=== PATIENT | female | born 1945 | race Caucasian/White ===

== ENCOUNTER 2020-05-28 07:59 | Outpatient (CLI) | payer MEDICARE, OTHER, SELFPAY ==
--- NOTE | ~2020-05-28 | DEXA_ITS ---
Bone Density Report Name: Radha Brooks Age: 75 Sex: Female Ethnicity: White Date of : 1945 Indication: osteopenia; height loss; Referring Provider: MARYAM DIALLO Study: Bone densitometry was performed. Exam Date: May 28, 2020 Accession number: [id number] Bone Density: Region BMD T-score Z-score Classification AP Spine (L1, L2) 0.831 -1.3 0.8 Osteopenia Femoral Neck (Left) 0.566 -2.6 -0.6 Osteoporosis Total Hip (Left) 0.721 -1.8 -0.1 Osteopenia Total Hip Bilateral Avg 0.722 -1.8 -0.1 Osteopenia Femoral Neck (Right) 0.567 -2.5 -0.6 Osteoporosis Total Hip (Right) 0.722 -1.8 -0.1 Osteopenia World Health Organization criteria for BMD impression classify patients as: Normal (T-score at or above -1.0), Osteopenia (T-score between -1.0 and -2.5), or Osteoporosis (T-score at or below -2.5). 10-year Fracture Risk: FRAX not reported because: Some T-score for Spine Total or Hip Total or Femoral Neck at or below -2.5 Previous Exams: Region Exam Age BMD T-score BMD Change BMD Change Date g/cm2 vs Baseline vs Previous AP Spine(L1, L2) 05/28/2020 75 0.831 -1.3 -0.083(-9.1%)# -0.011(-1.3%) 09/29/2017 72 0.842 -1.2 -0.072(-7.9%)# 0.000(0.0%) 08/25/2015 70 0.841 -1.3 -0.073(-8.0%)# -0.036(-4.1%)# 08/18/2012 67 0.877 -0.9 -0.037(-4.1%)# 0.007(0.8%)# 09/16/2006 61 0.870 -1.0 -0.044(-4.8%)* -0.015(-1.7%) 06/04/2004 59 0.885 -0.9 -0.029(-3.2%)* -0.029(-3.2%)* 06/11/2002 57 0.914 -0.6 Total Hip(Left) 05/28/2020 75 0.721 -1.8 -0.088(-10.8%) -0.042(-5.5%)* 09/29/2017 72 0.763 -1.5 -0.046(-5.6%)# -0.018(-2.3%) 08/25/2015 70 0.780 -1.3 -0.028(-3.5%)# -0.034(-4.2%)# 08/18/2012 67 0.814 -1.0 0.006(0.7%)# 0.033(4.2%)# 09/16/2006 61 0.782 -1.3 -0.027(-3.3%) -0.010(-1.3%) 06/04/2004 59 0.792 -1.2 -0.017(-2.1%) -0.017(-2.1%) 06/11/2002 57 0.808 -1.1 Total Hip(Right) 05/28/2020 75 0.722 -1.8 -0.077(-9.6%)# -0.024(-3.3%) 09/29/2017 72 0.746 -1.6 -0.053(-6.6%)# -0.015(-1.9%) 08/25/2015 70 0.761 -1.5 -0.038(-4.8%)# -0.014(-1.8%)# 08/18/2012 67 0.774 -1.4 -0.024(-3.0%)# -0.033(-4.1%)# 09/16/2006 61 0.808 -1.1 0.009(1.1%) 0.018(2.3%) 06/04/2004 59 0.790 -1.2 -0.009(-1.1%) -0.009(-1.1%) 06/11/2002 57 0.799 -1.2 *Denotes significance at 95% confidence level, LSC for AP Spine = 0.022 g/cm2, LSC for Total Hip = 0.027 g/cm2 Clinical Information Provided by Patient: Has u
--- NOTE | ~2020-05-28 | MM_ITS ---
EXAMINATION: MM screening jax BI w john HISTORY: Screening mammogram TECHNIQUE: Craniocaudal and mediolateral oblique 3-D tomosynthesis images were obtained and synthetic 2-D images were generated. CAD analysis was submitted and interpreted. COMPARISON: 09/29/2017, 09/27/2016, 08/23/2014 bilateral digital screening mammogram examinations BREAST PARENCHYMAL COMPOSITION: There are scattered areas of fibroglandular density. FINDINGS: There is a biopsy marker on the right. Occasional bilateral benign calcifications. There is no evidence of suspicious mass, calcification, or architectural distortion to suggest malignancy in either breast. There has been no suspicious interval change. IMPRESSION: 1. No mammographic evidence of malignancy. 2. Recommend routine screening mammography in one year. BI-RADS Category 2: Benign finding(s). Reviewed, dictated and finalized at location A.
== END 2020-05-28 08:00 | disposition home or self-care (01) ==
LOC: ANHIMG 08:01
PROVIDERS: PCP Family Medicine; Visit Provider Family Medicine
DX: Z12.31 Encounter for screening mammogram for malignant neoplasm of breast (principal); Z78.0 Asymptomatic menopausal state; M85.89 Other specified disorders of bone density and structure, multiple sites; M81.0 Age-related osteoporosis without current pathological fracture
CPT/HCPCS: 77063; 77067; 77080

== ENCOUNTER 2021-02-26 08:18 | Outpatient (CLI) | payer MEDICARE, OTHER, SELFPAY ==
--- NOTE | ~2021-02-26 | US_ITS ---
EXAMINATION: US retroperitoneal duplex ltd EXAM DATE: 02/26/2021 09:38 INDICATION: Renal artery aneurysm. TECHNIQUE: Multiple grayscale and Doppler images of the kidneys and renal arteries were obtained. Co rrelation is made to CT without contrast 03/23/2019 demonstrating 9 mm renal artery aneurysm. FINDINGS: Right kidney measures 8.0 x 3.8 cm. The left kidney measures 7.9 x 4.5 cm, and has a 6-7 cm exophytic cyst off the lower pole. No hydronephrosis. The aorta peak systolic velocity is 78 cm/s. Renal arteries interrogated in several segments from origin to hilum. RIGHT RENAL ARTERY Proximal segment (origin): 123 cm/s. Middle segment: 176 cm/s. Distal segment (hilum): 94 cm/s. LEFT RENAL ARTERY Proximal segment (origin): 115 cm/s. Middle segment: 120 cm/s. Distal segment (hilum): 122 cm/s. IMPRESSION: 1. Renal artery Doppler velocities within normal limits. 2. Cannot identify right renal artery aneurysm seen on CT. Reviewed, dictated and finalized at location G.
== END 2021-02-26 08:19 | disposition home or self-care (01) ==
PROVIDERS: PCP Family Medicine; Visit Provider Family Medicine
DX: I72.2 Aneurysm of renal artery (principal)
CPT/HCPCS: 93976

== ENCOUNTER 2021-12-29 14:31 | Outpatient (CLI) | payer MEDICARE, OTHER, SELFPAY ==
--- NOTE | ~2021-12-29 | MM_ITS ---
EXAMINATION: MM screening jax BI w john HISTORY: Screening mammogram TECHNIQUE: Craniocaudal and mediolateral oblique 3-D tomosynthesis images were obtained and synthetic 2-D images were generated. CAD analysis was submitted and interpreted. COMPARISON: 05/28/2020, 09/29/2017, 09/27/2016 bilateral screening mammogram examinations BREAST PARENCHYMAL COMPOSITION: There are scattered areas of fibroglandular density. FINDINGS: Biopsy marker on the right; history of prior benign right breast biopsy. Occasional bilater al benign calcifications. There is no evidence of suspicious mass, calcification, or architectural di stortion to suggest malignancy in either breast. There has been no suspicious interval change. IMPRESSION: 1. No mammographic evidence of malignancy. 2. Recommend routine screening mammography in one year. BI-RADS Category 2: Benign finding(s). Reviewed, dictated and finalized at location A.
== END 2021-12-29 14:32 | disposition home or self-care (01) ==
PROVIDERS: PCP Family Medicine; Visit Provider Physician Assistant Medical
DX: Z12.31 Encounter for screening mammogram for malignant neoplasm of breast (principal)
CPT/HCPCS: 77063; 77067

== ENCOUNTER 2022-01-05 12:38 | Outpatient (CLI) | payer MEDICARE, OTHER, SELFPAY ==
--- NOTE | ~2022-01-05 | XR_ITS ---
IMPRESSION: 1. Tricompartmental osteoarthritis. EXAMINATION: XR knee LT 3V DATE: 01/05/2022 12:58 INDICATION: Left knee pain TECHNIQUE: Three views of the left knee were obtained. COMPARISON: None. FINDINGS: Alignment is normal. No fracture or osteochondral lesion. There is moderate tricompartmenta l osteoarthritis. No joint effusion/synovitis. Soft tissues are unremarkable. IMPRESSION: 1. Tricompartmental osteoarthritis. Reviewed, dictated and finalized at location F.
--- NOTE | ~2022-01-05 | CT_ITS ---
EXAMINATION: CT abdomen wo con DATE: 01/05/2022 13:05 INDICATION: Renal artery surveillance TECHNIQUE: Computed tomography (CT) of the abdomen was performed without intravenous contrast. Automa juan exposure control and iterative reconstruction technique were employed. Exam dose: 121.95 mGy-cm total exam DLP. COMPARISON: 03/23/[address] abdomen pelvis FINDINGS: The lung bases are clear of infiltrate or consolidation. Normal heart size. No pericardial or pleural effusion. The liver, gallbladder, bile ducts, spleen, pancreas, pancreatic duct and adrenal glands are unremark able. Prominently calcified up to 9 mm right renal artery aneurysm, stable since 03/23/2019. 6 cm lower pole left renal cyst. No renal calculus or hydroureteronephrosis. There is atherosclerotic calcification but normal caliber of the abdominal aorta. There is probably c alcification at the origins of the renal arteries and celiac and superior mesenteric arteries. No int raperitoneal or retroperitoneal mass lesion or adenopathy or ascites. Diverticulosis of descending colon. No bowel obstruction or intraperitoneal free air is detected. Small fat-containing umbilical hernia. Scoliosis and degenerative disc disease of the lumbar spine. IMPRESSION: Stable approximately 9 mm right renal calcified aneurysm, not significantly changed sinc e 03/23/2019 6 cm lower pole left renal cyst Diverticulosis of descending colon Reviewed, dictated and finalized at Location A. Reviewed, dictated and finalized at location A. IMPRESSION: Stable approximately 9 mm right renal calcified aneurysm, not sign ificantly changed since 03/23/2019 6 cm lower pole left renal cyst Diverticulosis of descending colon
== END 2022-01-05 12:39 | disposition home or self-care (01) ==
PROVIDERS: PCP Family Medicine; Visit Provider Family Medicine
DX: I72.2 Aneurysm of renal artery (principal); N28.1 Cyst of kidney, acquired; M41.9 Scoliosis, unspecified; K57.30 Diverticulosis of large intestine without perforation or abscess without bleeding; M47.816 Spondylosis without myelopathy or radiculopathy, lumbar region; M17.12 Unilateral primary osteoarthritis, left knee
CPT/HCPCS: 73562; 74150

== ENCOUNTER 2022-03-05 15:44 | Emergency (ER) | payer MEDICARE, OTHER, SELFPAY ==
--- NOTE | ~2022-03-05 | XR_ITS ---
EXAMINATION: XR abdomen/kub 1V DATE: 03/05/2022 16:10 INDICATION: Low abdominal pain. TECHNIQUE: A supine view of the abdomen was obtained. COMPARISON: CT abdomen 01/05/2022, CT abdomen and pelvis 03/23/2019 FINDINGS: There are no dilated loops of bowel. There is no visible urolithiasis. There is an 8 mm rim -calcified saccular aneurysm of right renal artery. There are vascular calcifications and soft tissue calcifications in the pelvis. IMPRESSION: 1. Normal bowel gas pattern. 2. No urolithiasis. Reviewed, dictated and finalized at location A.
[2022-03-05 15:52] VITALS: BP 110/61; PULSE 106; RESP 16; TEMP 36.4; O2SAT 100
--- NOTE | 2022-03-05 16:32 | ED.ABDPAIN ---
HPI - Abdominal Pain General Chief Complaint: Abdominal Pain Stated Complaint: diarrhea,fatigue,abdominal pain Time Seen by Provider: 03/05/22 16:32 Source: RN notes reviewed and old records reviewed Mode of arrival: ambulatory Limitations: no limitations History of Present Illness HPI narrative: 77 year old female who presents to [facility] care with complaints of upper and lower abdominal pain for the past 4 days. She states that she has been having a lot of belching and pain is intermittent. She reports that she has had some episodes of diarrhea and has history of IBS and diverticulosis and has taken some hyoscyamine and pepcid for her complaints. Patient denies any urinary burning or any frequency of urination or any back pain. Patient denies any fevers but states some chills at times. Patient did not call her PCP or continuity director office. MD elicited complaint: abdominal pain Pertinent past history: other (IBS and diverticulosis) Onset (ago): day(s) (4) Treatments prior to arrival: other (pepcid and hyoscamine) Related Data Home Medications Medication Instructions Recorded Confirmed hyoscyamine sulfate 0.125 mg tablet 0.125 mg PO QID PRN ibs 09/23/21 02/24/22 Allergies Allergy/AdvReac Type Severity Reaction Status Date / Time beef derived (bovine) Allergy Unknown stomach Verified 02/24/22 11:50 pain diclofenac Allergy Unknown abdominal Verified 02/24/22 11:50 pain No Known Allergies Allergy Verified 02/24/22 11:50 Review of Systems Review of Systems: CONSTITUTIONAL: Denies fever, reports chills at X's no sweats. EYES: Denies visual changes, redness, or discharge. ENT: Denies rhinorrhea, congestion, sore throat, or otalgia. CARDIOVASCULAR: Denies chest pain, palpitations, or edema. RESPIRATORY: Denies cough or dyspnea. GASTROINTESTINAL: Upper and lower abdominal pain, intermittent with no nausea, vomiting, some diarrhea. GENITOURINARY: Denies dysuria or hematuria. SKIN: Denies rash or itching. MUSCULOSKELETAL: Chronic back pain, joint pain, or myalgia. NEUROLOGIC: Denies headache, numbness, or weakness. PSYCHIATRIC: Denies anxiety or depression [facility] Past Medical History Medical History (Updated 03/06/22 @ 12:24 by Gay Velez NP) Aneurysm of right renal artery 2018 9mm calcified rim 2020 renal duplex normal Chronic insomnia Diverticulosis large intestine w/o perforation or abscess w/o bleeding Essential hypertension GERD without esophagitis Hypothyroid Mixed hyperlipidemia Sciatica Surgical History Surgical History (Updated 03/06/22 @ 12:25 by Gay Velez NP) History of bunionectomy History of carpal tunnel release right History of tonsillectomy Family History Family History Father Diabetes mellitus Family history of cardiovascular disease Other Family history of elevated blood lipids Hypertension Social History Social History (Updated 03/06/22 @ 12:26 by Gay Velez NP) Smoking end date: 09/12/86 Alcohol intake: never Substance use: never Living arrangements: with family Gender identity (if verbalized by the patient): Female Comments at time of signature agree with nursing documentation of past medical, surgical, social, family history. There is no relevant family history pertinent to presenting complaint. Exam Narrative: GENERAL: Well-appearing, well-nourished, and in no acute distress. HEAD: Normocephalic, atraumatic. EYES: PERRLA and EOMI. ENT: Nares clear, no rhinorrhea or epistaxis. Mucous membranes moist.TM's normal with good light reflex, throat pink with no lesions or exudates no tonsils present NECK: Supple.no lymphadenopathy CHEST: Clear to auscultation. No respiratory distress.SAO2 100% on room air HEART: Regular rate and rhythm. No murmur heard. Normal peripheral pulses. ABDOMEN: Soft, nontender to palpation, no McBurney point tenderness, nondistended patient repor
== END 2022-03-05 16:54 | disposition home or self-care (01) ==
PROVIDERS: Emergency Provider Registered Nurse; PCP Family Medicine
DX: N39.0 Urinary tract infection, site not specified (principal); I10 Essential (primary) hypertension; K21.9 Gastro-esophageal reflux disease without esophagitis; E03.9 Hypothyroidism, unspecified; E78.2 Mixed hyperlipidemia
CPT/HCPCS: 74018; 81003; 87086; 87088; 99213; G0463

== ENCOUNTER 2022-04-14 11:29 | Outpatient (CLI) | payer MEDICARE, OTHER, SELFPAY | END 2022-04-14 11:30 | disposition home or self-care (01) | LOC: ANHGOSHLAB 11:31 | PROVIDERS: PCP Family Medicine; Visit Provider Family Medicine | DX: E03.9 Hypothyroidism, unspecified (principal) | CPT/HCPCS: 36415; 84443 ==

== ENCOUNTER 2022-08-09 13:32 | Outpatient (CLI) | payer MEDICARE, OTHER, SELFPAY ==
[2022-08-09 20:07] LABS: Potassium 4.2 mmol/L (3.4-5.0)
[2022-08-09 20:13] LABS: Anion Gap 9 mmol/L (8-16); Blood Urea Nitrogen 28 mg/dL (7-17); Calcium 8.9 mg/dL (8.4-10.2); Carbon Dioxide 26 mmol/L (22-30); Chloride 108 mmol/L (98-107); Estimated Glomerular Filt Rate 54; Glucose 89 mg/dL (65-110); Sodium 143 mmol/L (137-145)
== END 2022-08-09 13:33 | disposition home or self-care (01) ==
LOC: ANHGOSHLAB 13:36
PROVIDERS: PCP Family Medicine; Visit Provider Family Medicine
DX: I10 Essential (primary) hypertension (principal)
CPT/HCPCS: 36415; 80048

== ENCOUNTER → 2022-08-13 11:58 | Outpatient (CLI) | payer MEDICARE, OTHER, SELFPAY ==
--- NOTE | ~2022-08-13 | DEXA_ITS ---
Bone Density Report Name: GABRIELA VILLAFUERTE Age: 77 Sex: Female Ethnicity: White Date of : 1945 Indication: postmenopausal; screening for osteoporosis; height loss; Referring Provider: MARYAM DIALLO Study: Bone densitometry was performed. Exam Date: August 13, 2022 Accession number: [id number] Bone Density: Region BMD T-score Z-score Classification AP Spine (L1-L4) 0.873 -1.6 0.8 Osteopenia Femoral Neck (Left) 0.574 -2.5 -0.4 Osteoporosis Total Hip (Left) 0.728 -1.8 0.1 Osteopenia Femoral Neck (Right) 0.563 -2.6 -0.5 Osteoporosis Total Hip (Right) 0.718 -1.8 0.0 Osteopenia Total Hip Mean 0.723 -1.8 0.1 Osteopenia World Health Organization criteria for BMD impression classify patients as: Normal (T-score at or above -1.0), Osteopenia (T-score between -1.0 and -2.5), or Osteoporosis (T-score at or below -2.5). 10-year Fracture Risk: FRAX not reported because: Some T-score for Spine Total or Hip Total or Femoral Neck at or below -2.5 Clinical Information Provided by Patient: Has used the following medications: Vitamin D Patient maximum height was 59.75 Menopause Age: 53 Drinks caffeinated beverages Onset of menses at age 14 Number of children 2 Impression: The patient has osteoporosis, based on the Right Femoral Neck T-score. Discussion: INCREASED RISK OF FRACTURE. BONE DENSITY IS UNDESIRABLY LOW AT ONE OR MORE SKELETAL SITES, CONSISTENT WITH POSTMENOPAUSAL OSTEOPOROSIS. This patient's lowest T-score meets the World Health Organization's (WHO) criteria for osteoporosis at one or more sites (T-score -2.5 or below). In untreated patients, the risk of osteoporotic fracture increases approximately two-fold for each 1.0 SD decrease in T-score. Low bone density is not the only risk factor for fracture; also consider factors such as patient's age, frailty or poor health, risk of falling, risk of injury, previous osteoporotic fracture, family history of osteoporosis, cigarette smoking, low body weight, etc. Not everyone with low bone mineral density has osteoporosis; osteomalacia and other metabolic bone disorders should also be considered. Patients who have osteoporosis should be evaluated for specific diseases and conditions (secondary causes) that may cause or contribute to bone loss. The [place] [employer] Endocrinologists (AACE) and National Osteoporosis Foundation (NOF) recommend pharmacologic intervention for all postmenopausal women whose T-score is in this range. The patient should follow a healthful lifestyle (good nutrition with adequate calcium and vitamin D, and appropriate weight-bearing exercise). Follow-Up: Consider a repeat BMD and Vertebral Fracture Assessment (VFA) exam in 2 years or sooner if medically necessary, to reassess this patient's status. Reported by
== END ==
PROVIDERS: PCP Family Medicine; Visit Provider Family Medicine
DX: Z78.0 Asymptomatic menopausal state (principal); M81.0 Age-related osteoporosis without current pathological fracture
CPT/HCPCS: 77080

== ENCOUNTER 2022-10-05 13:02 | Outpatient (CLI) | payer MEDICARE, SELFPAY ==
[2022-10-06 09:36] LABS: Kit Draw Collected
== END 2022-10-05 13:03 | disposition home or self-care (01) ==
LOC: ANHGOSHLAB 13:04
PROVIDERS: PCP Family Medicine; Visit Provider Family Medicine
DX: G62.9 Polyneuropathy, unspecified (principal); I10 Essential (primary) hypertension; M79.89 Other specified soft tissue disorders
CPT/HCPCS: 36415

== ENCOUNTER 2022-10-25 00:06 | Day surgery (SDC) | payer MEDICARE, OTHER, SELFPAY ==
[2022-10-22 09:19] VITALS: BMI 23.6
--- NOTE | 2022-10-22 09:26 | PC.NURSE ---
Report to the Outpatient Waiting Room, entrance under the green pavilion located off [facility], at time __1100 on date __10/25/21 . Planned Procedure Time: ___1 PM . Time changes happen often and if your time is changed the preop area will call you the afternoon before. - You and your visitor will be asked to self-screen and do not enter if you have any COVID symptoms. - Only one visitor is requested with a max of two and NO children visitors are allowed at this time. - The patient visitor may be requested to leave or wait in car when not with patient due to distancing restrictions. - A mask is optional within the hospital at this time. Patients may have clear liquids (water, carbonated beverages, clear teas, apple juice) until 3 hours prior to surgery (1000 AM) with a maximum of 20 ounces. - No food from midnight until time of surgery - Infants may have breast milk until 4 hours before surgery, infant formula 6 hours prior to surgery. - Children will be allowed to drink immediately following surgery. If applicable, please bring a bottle or sippy cup to assist with drinking. Juice, water, soda, and popsicles are readily available. For infants on formula, please bring formula the day of surgery. Pacifiers are allowed. Take the following medications with a SIP of water the morning of surgery: _GABAPENTIN, LEVOTHYROXINE, NEBIVOLOL, & TYLENOL, EYE DROPS IF NEEDED__ DO NOT STOP ANY OF YOUR OTHER PRESCRIPTION MEDICATIONS PRIOR TO SURGERY ?EXCEPT THE FOLLOWING Medications to discontinue _MELOXICAM PER DR. LOERA'S INSTRUCTIONS_ Medications to discontinue per ANESTHESIA -_VITAMINS/SUPPLEMENTS OF TODAY Date to take last dose____10/22/22 Please no make-up, nail croatian, hairspray, perfume, deodorant, or body powder the day of surgery. No jewelry (including any body piercings) or valuables the day of surgery, leave them at home. Please take a shower or bath the night before, or the morning of, surgery with an antibacterial soap. Wear comfortable, loose fitting clothing. Children are encouraged to wear pajamas. - Jewelry must be removed prior to entering the operating room. Rings and piercings that are not removed may be cut off. - The hospital will not accept responsibility for valuables. - Please leave all valuables, including medications, at home the day of surgery. If you are going home after surgery, a licensed airport driver must drive you home. - NO public transportation without another adult if you receive anesthesia. - We recommend that an adult stay with you for 24 hours following discharge. - We also recommend that you do not drive, make important decision, drink alcoholic beverages, or take any drugs that were not prescribed by your health care provider for at least 24 hours after your discharge time. For Pediatric surgeries, we recommend two adults accompany the child home. Follow any additional instructions given to you from your surgeon. If you or anyone in your household have experienced Covid symptoms in the past week, please notify your surgeon or the nurse liaison at the phone number below for possible testing. Telephone instructions given to ___PATIENT and asked if any additional questions and then verbalized understanding. Patient advised to call surgeon office or pre surgery nurse liaison [phone] if any additional questions.
--- NOTE | 2022-10-25 09:21 | WPDANESEPPF ---
Anes - Initial Pre Proc Eval Procedure: Operation Date: 10/25/22 10:00 Proposed Procedures p Left Third Trigger Finger Release - Amos Ghosh MD Date/Time: 10/25/22 09:21 Surgeon: Amos Ghosh MD Pre Op Diagnosis: left third trigger finger Patient Data Age: 77 Gender: F Height: 1.49 m Weight: 53.8 kg Allergies Allergy/AdvReac Type Severity Reaction Status Date / Time beef derived (bovine) Allergy Unknown stomach Verified 10/25/22 09:06 pain diclofenac Allergy Unknown abdominal Verified 10/25/22 09:06 pain Home Medications Medication Instructions Recorded Confirmed Type acetaminophen 500 mg tablet 500 mg PO Q6H PRN Pain 07/15/22 10/22/22 History (Tylenol Extra Strength) atorvastatin 10 mg tablet 10 mg PO DAILY #90 tabs 07/15/22 10/22/22 Rx hyoscyamine sulfate 0.125 mg tablet 0.125 mg PO QID PRN dyspepsia #30 07/15/22 10/22/22 Rx tabs levothyroxine 50 mcg tablet 50 mcg PO DAILY #90 tabs 07/15/22 10/25/22 Rx artificial tears(hypromellose) 0.3 1 drp EACH EYE QID PRN Dry Eyes 08/17/22 10/22/22 History % eye gel (Systane Gel) meloxicam 7.5 mg tablet 7.5 mg PO DAILY PRN Pain 09/29/22 10/22/22 History gabapentin 300 mg capsule 300 mg PO .COMPLEX #90 caps 10/19/22 10/22/22 Rx metoprolol succinate 50 mg capsule 50 mg PO DAILY #90 ea 10/19/22 10/22/22 Rx sprinkle, ext. release 24 hr cholecalciferol (vitamin D3) 50 50 mcg PO DAILY 10/22/22 10/22/22 History mcg (2,000 unit) capsule cyanocobalamin (vitamin B-12) 500 500 mcg PO DAILY 10/22/22 10/22/22 History mcg tablet magnesium citrate 100 mg capsule 100 mg PO DAILY 10/22/22 10/22/22 History nebivolol 2.5 mg tablet 2.5 mg QAM 10/22/22 10/22/22 History zolpidem 10 mg tablet 10 mg PO QHS 10/22/22 10/22/22 History Patient hx anesthesia problems: none Family hx anesthesia problems: none Results Review: All pre-operative results and documents have been reviewed as part of the pre-operative evaluation. [facility] Past Medical History Medical History Aneurysm of right renal artery 4.26.22 ct renal artery for renal artery aneurysm- 9mm calcified rim right renal artery aneurysm stable 2019: Arthritis of carpometacarpal (CMC) joint of right thumb Chronic insomnia Diverticulosis large intestine w/o perforation or abscess w/o bleeding Essential hypertension GERD without esophagitis Hypothyroid Mixed hyperlipidemia Osteoarthritis of left knee Sciatica Trigger finger, left middle finger Surgical History Surgical History History of bunionectomy History of carpal tunnel release right History of cataract extraction History of tonsillectomy Family History Family History Father Diabetes mellitus Family history of cardiovascular disease Other Family history of elevated blood lipids Hypertension Social History Social History Smoking packs per day: 1 Smoking cigarettes per day: 20.0 Years smoked: 15 Smoking pack-years: 15.00 Smoking status: Former smoker Tobacco type: cigarettes Second hand tobacco smoke exposure: No Smoking end date: 09/12/80 Alcohol intake: never Substance use: never Substance use type: does not use Lack of Transportation: No Lack of Food: Never True Current Housing: I Have Housing Concerned About Future Housing: No Difficulty Paying Gas/Electric Bills: No Difficulty Paying for Meds: No Currently Unemployed: No Education: High School Diploma/GED Difficulty w/ Childcare or Family Care: No Living arrangements: with family Occupation/Education: retired Gender identity (if verbalized by the patient): Female Spiritual care concerns: No Anes - Eval Final PreProcedure Day of Procedure 10/25/22 09:21 Patient weight: normal Hear
[2022-10-25] MEDS: ceFAZolin 2 GM/D5W 50 ML 2 GM/50 ML BAG IVPB (09:30)
--- NOTE | 2022-10-25 09:31 | WPDHPUPDATE1 ---
History and Physical Update Update Date/Time: 10/25/22 09:31 History and Physical has been reviewed, including an updated exam of the patient. There are NO changes in the patient's condition. Risks, benefits, and alternatives have been discussed and questions answered. Patient agrees to proceed with procedure.
[2022-10-25] MEDS: BUPivacaine HCL 0.25% PF 30 ML VIAL 5 ML INFILTRATE (09:56)
[2022-10-25 10:05] VITALS: BP 94/60; PULSE 65; RESP 14; O2SAT 100
[2022-10-25] MEDS: LACTATED RINGERS 1,000 ML 30 ML IV CONT (10:05)
--- NOTE | 2022-10-25 10:16 | P.OP_ITS ---
Procedure Note - Detailed Date of Procedure 10/25/22 Pre-op Diagnosis left third trigger finger Post-op Diagnosis Same Procedure Performed left third trigger finger release Surgeon Amos Ghosh MD [employer] Racheal Valerio Anesthesia MAC and Local Description of Procedure The patient was identified and proper site identified. Shewas taken to the operating room and transferred to the OR table placing supine taking care to pad the torso and extremities. IV sedation was administered. A nonsterile tourniquet was placed high on the left arm which was prepped and draped in the usual sterile fashion. Several cc of .25 % plain Marcaine was injected into the subcutaneous tissue over the A1 yuliya of the left third digit. The extremity was exsanguinated and the tourniquet was inflated to 50 mmHg remaining up for about eight minutes. A longitudinal incision was made over the A1 yuliya. Subcutaneous tissue was bluntly dissected down to the yuliya while protecting the neurovascular bundles. The A1 yuliya was identified and then transected longitudinally in line with the incision and tendons. The tendons were delivered into the wound verifying the adequacy of the release. Hemostasis was carried out. The wound was irrigated with sterile saline. Skin edges were reapproximated with 4-0 nylon suture. Sterile dressing was applied. Tourniquet was released. She tolerated the procedure well and was transferred back to a cart, then taken to the recovery area in stable condition. There were no known intraoperative complications. Estimated blood loss was negligible. Perioperative antibiotics were administered. Estimated Blood Loss 1 Tourniquet Time 8 Drains No Packing No Pathology None sent Complications No immediate complications Condition Stable Disposition PACU [facility] Billing Surgery - Charge Forward: Surgery Billing ([id number])
[2022-10-25 10:30] VITALS: BP 126/61; PULSE 65; RESP 15
[2022-10-25 11:00] VITALS: BP 130/69; PULSE 68; RESP 14
== END 2022-10-25 11:20 | disposition home or self-care (01) ==
PROVIDERS: PCP Family Medicine; Visit Provider Orthopaedic Surgery
PROC: (CPT 26055; principal; 2022-10-25 10:00)
DX: M65.332 Trigger finger, left middle finger (principal); I10 Essential (primary) hypertension; K21.9 Gastro-esophageal reflux disease without esophagitis; E78.2 Mixed hyperlipidemia; F51.04 Psychophysiologic insomnia; Z87.891 Personal history of nicotine dependence
CPT/HCPCS: 26055; J0690; J2250; J2704; J3010; J7120

== ENCOUNTER 2023-09-19 11:00 | Outpatient (RCR) | payer MEDICARE, OTHER, SELFPAY ==
--- NOTE | 2023-09-14 09:52 | OPREHPOC ---
Outpatient Therapy Plan of Care This is a Multidisciplinary Plan of Care that may contain components documented by all disciplines (PT, OT, and ST.) PT Problem 1 PT Problem #1 Knowledge Deficit PT Goal 1 Goal 1. Patient will perform independent HEP Target Visit 11 PT Problem 2 PT Problem #2 Pain PT Goal 1 Goal 1. Patient able to do all activities with shoulder pain no nigher than 2/10 Target Visit 11 PT Problem 3 PT Problem #3 Impaired Range of Motion PT Goal 1 Goal 1. Improve R shoulder to be equal to L in all planes in order to return to full function Target Visit 11 PT Problem 4 PT Problem #4 Impaired Strength PT Goal 1 Goal 1. Improve MMT to at least 4+/5 in all planes on R in order to cook and clean without limitation Target Visit 11
--- NOTE | 2023-09-14 09:53 | PTOPEVAL1 ---
Assessment and note entered by Amy Paulson DPT Evaluation Information Assessment Status Evaluation Subjective Information Pt reports R shoulder pain for about a month or so . Difficulty taking clothes off or lifting something. Pain is anterior/superior shoulder. Highest pain 7/10 and lowest 0/10. Denies n/t. Pt is doing her normal cooking and cleaning but modifies with her L UE more than her R. Pt is R hand dominant. Returns to MD in 6 months. Patient goal: get rid of pain. Reported Pain Level Pain Score 4: Self Report Assessment PT Clinical Summary The patient is presenting to skilled therapy with R shoulder pain for approximately 1 month. She presents with decreased range of motion and strength in all planes which are contributing to her difficulty with typical ADL's including dressing. She will benefit from therapy to address these impairments in order to safely reduce pain and return to full function. Plan of Care Interventions Electrical Stimulation,Hot Pack/Cold Pack,Manual Therapy,Neuro Re-education,Patient/Caregiver Education,Therapeutic Activities,Therapeutic Exercise PT Services Indicated Yes Treatment Frequency and 2 times a week for 10 visits Duration These treatments will address the objective and functional deficits as defined above. The patient will be advanced safely and appropriately in order for the patient to progress towards his/her prior level of function. Additional exercises will be introduced and as well as a comprehensive home exercise program upon discharge, if needed, ?to ensure carryover of functional gains achieved in the clinic. This treatment plan has been reviewed and agreement upon by the patient.
--- NOTE | 2023-11-14 11:48 | PTOPDC ---
Assessment and note entered by Amy Paulson, DPT Evaluation Information Assessment Status Discharge - Pt Not Present Subjective Information - Assessment PT Clinical Summary Therapist called patient on 11/10/23 as she had not attended therapy since 09/19/23. Patient reports she is feeling good and continuing to do her HEP, wants to be discharged at this time. Plan of Care PT Services Indicated No
== END 2023-11-14 12:57 | disposition home or self-care (01) ==
LOC: ANHGOSHPT 11:00
PROVIDERS: PCP Family Medicine; Visit Provider Physician Assistant
DX: M77.8 Other enthesopathies, not elsewhere classified (principal)
CPT/HCPCS: 97110; 97140; 97161

== ENCOUNTER 2023-09-20 14:31 | Outpatient (CLI) | payer MEDICARE, OTHER, SELFPAY ==
--- NOTE | ~2023-09-20 | MM_ITS ---
EXAMINATION: MM screening [facility] BI w john HISTORY: Screening mammogram TECHNIQUE: Craniocaudal and mediolateral oblique 3-D tomosynthesis images were obtained and synthetic 2-D images were generated. CAD analysis was submitted and interpreted. COMPARISON: 12/29/2021, 05/28/2020, 09/29/2017, 09/27/2016 BREAST PARENCHYMAL COMPOSITION: There are scattered areas of fibroglandular density. FINDINGS: No suspicious mass, calcification, or architectural distortion are identified in either mirian ast to suggest malignancy. There has been no suspicious interval change. IMPRESSION: 1. No mammographic evidence of malignancy. 2. Recommend routine screening mammography in one year. BI-RADS Category 1: Negative Reviewed, dictated and finalized at location A. [employer]
== END 2023-09-20 14:32 | disposition home or self-care (01) ==
PROVIDERS: PCP Family Medicine; Visit Provider Physician Assistant
DX: Z12.31 Encounter for screening mammogram for malignant neoplasm of breast (principal)
CPT/HCPCS: 77063; 77067

== ENCOUNTER 2023-10-03 09:03 | Outpatient (CLI) | payer MEDICARE, OTHER, SELFPAY ==
[2023-10-03 19:00] LABS: Alanine Aminotransferase 27 U/L (6-35); Albumin Level 3.6 g/dL (3.5-5.1); Alkaline Phosphatase 63 U/L (38-126); Anion Gap 6 mmol/L (8-16); Aspartate Amino Transferase 45 U/L (14-36); Basophils Percent Auto 0.7 % (0.2-1.2); Bilirubin,Total 0.7 mg/dL (0.2-1.3); Blood Urea Nitrogen 23 mg/dL (7-17); Calcium 8.9 mg/dL (8.4-10.2); Carbon Dioxide 30 mmol/L (22-30); Chloride 105 mmol/L (98-107); Cholesterol 166 mg/dL (0-200); Eosinophils Absolute Auto 0.2 K/mm3 (0-0.3); Eosinophils Percent Auto 4.5 % (0-4.4); Estimated Glomerular Filt Rate 48; Glucose 80 mg/dL (65-110); HDL Direct 41 mg/dL; Hematocrit 43.2 % (37.0-47.0); Hemoglobin 13.5 g/dL (12.0-15.0); Immature Granulocyte Absolute 0.01 K/mm3 (0.00-0.031); Immature Granulocyte Percent A 0.2 % (0-0.5); Lymphocytes Absolute Auto 1.36 K/mm3 (0.9-3.2); Lymphocytes Percent Auto 32.5 % (18.3-44.2); Mean Corpuscular HGB Conc 31.3 g/dl (32-36); Mean Corpuscular Hemoglobin 30.3 pg (26-34); Mean Corpuscular Volume 96.9 fl (80-100); Mean Platelet Volume 9.4 fl (7.4-10.4); Monocytes Absolute Auto 0.5 K/mm3 (0.1-0.6); Monocytes Percent Auto 12.9 % (2.6-8.5); Neutrophils Absolute Auto 2.1 K/mm3 (1.3-6.7); Neutrophils Percent Auto 49.2 % (45.5-73.1); Platelet Count Result 162 k/mm3 (150-375); Potassium 4.3 mmol/L (3.4-5.0); Red Blood Count 4.46 M/mm3 (4.2-5.4); Red Cell Distribution Width 13.3 % (11.5-14.5); Sodium 141 mmol/L (137-145); Triglycerides 84 mg/dL (<150); White Blood Count 4.2 K/mm3 (4.5-10.0)
[2023-10-03 19:12] LABS: LDL Cholesterol Direct 104 mg/dL
[2023-10-06 11:47] LABS: Vitamin D 1,25 (OH)2 Total 40 pg/mL (18-72); Vitamin D2 1,25 (OH)2 10 pg/mL; Vitamin D3 1,25 (OH)2 30 pg/mL
== END 2023-10-03 09:04 | disposition home or self-care (01) ==
PROVIDERS: PCP Family Medicine; Visit Provider Physician Assistant
DX: E03.9 Hypothyroidism, unspecified (principal); E55.9 Vitamin D deficiency, unspecified; E78.2 Mixed hyperlipidemia; I10 Essential (primary) hypertension; R73.03 Prediabetes; Z79.899 Other long term (current) drug therapy
CPT/HCPCS: 36415; 80053; 80061; 82607; 82652; 83036; 84443; 85025

== ENCOUNTER 2023-12-07 15:22 | Outpatient (CLI) | payer MEDICARE, OTHER, SELFPAY ==
[2023-12-07 19:08] LABS: Alanine Aminotransferase 23 U/L (6-35); Albumin Level 4.1 g/dL (3.5-5.1); Alkaline Phosphatase 67 U/L (38-126); Amylase 74 U/L (30-110); Anion Gap 2 mmol/L (4-12); Aspartate Amino Transferase 34 U/L (14-36); Bilirubin,Total 0.7 mg/dL (0.2-1.3); Blood Urea Nitrogen 26 mg/dL (7-17); Calcium 9.6 mg/dL (8.4-10.2); Carbon Dioxide 30 mmol/L (22-30); Chloride 106 mmol/L (98-107); Estimated Glomerular Filt Rate 54; Glucose 90 mg/dL (65-110); Lipase 100 U/L (23-300); Potassium 4.3 mmol/L (3.4-5.0); Sodium 138 mmol/L (137-145)
== END 2023-12-07 15:23 | disposition home or self-care (01) ==
LOC: ANHGOSHLAB 15:24
PROVIDERS: PCP Family Medicine; Visit Provider Nurse Practitioner Family
DX: R10.12 Left upper quadrant pain (principal)
CPT/HCPCS: 36415; 80053; 82150; 83690

== ENCOUNTER 2023-12-07 16:10 | Outpatient (CLI) | payer MEDICARE, OTHER, SELFPAY ==
--- NOTE | ~2023-12-07 | CT_ITS ---
EXAMINATION: CT abdomen pelvis w con DATE: 12/07/2023 16:54 INDICATION: Left upper quadrant abdominal pain TECHNIQUE: Computed tomography (CT) of the abdomen and pelvis was performed with 100 mL Omnipaque-350 intravenous contrast. Automated exposure control and iterative reconstruction technique were employe d. The dose-length product was 320.66 mGy-cm. COMPARISON: 01/05/2022 FINDINGS: Lung bases are clear. Heart size is normal. No pericardial or pleural effusion. Atherosclerotic coron tarsha artery calcification. Aortic valve calcification. There are few small calcified gallstones in dep endent aspect of the normal gallbladder. Liver, spleen, pancreas and bilateral adrenal glands are nor mal. 6.4 cm exophytic cyst at the lower pole of the left kidney. 7 mm rim calcified right renal arter y aneurysm at the right renal hilum. There is moderate colonic diverticulosis with a descending and s igmoid colon predominance. There is no adjacent inflammatory change to suggest diverticulitis. Small bowel and appendix are normal. Bladder, anteverted uterus and bilateral adnexa are unremarkable. No free intraperitoneal gas or fluid. No pathologically enlarged abdominal or pelvic lymphadenopathy. Mild lumbar dextroscoliosis with severe spondylosis. IMPRESSION: 1. No acute intra-abdominal/pelvic process. 2. Moderate descending and sigmoid: Predominant diverticulosis. 3. Cholelithiasis. 4. 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 Reviewed, dictated and finalized at location A.
[2023-12-07 16:49] LABS: Estimated Glomerular Filt Rate 48
== END 2023-12-07 16:11 | disposition home or self-care (01) ==
PROVIDERS: PCP Family Medicine; Visit Provider Nurse Practitioner Family
DX: K80.20 Calculus of gallbladder without cholecystitis without obstruction (principal); K57.31 Diverticulosis of large intestine without perforation or abscess with bleeding; I72.2 Aneurysm of renal artery
CPT/HCPCS: 36415; 74177; 80053; 82150; 83690; Q9967

== ENCOUNTER 2024-10-10 09:14 | Outpatient (CLI) | payer MEDICARE, OTHER, SELFPAY ==
--- OUTSIDE RECORDS SUMMARY | 2024-10-10 09:50 | XMS_ITS | Data Portability ---
Author Organization [place] - [facility] [place] [employer] [facility], Main Office Address [address] [place] [address] Care Team Providers Care Independent Marketing Consultant Name Role Phone MARYAM DIALLO Primary Care Provider MARYAM DIALLO Referring Provider Assessment Encounter Date Assessment Date Assessment LastModified by Organization Details LastModified Time 10/14/2023 10/14/2023 The patient has severe primary osteoarthritis left knee joint with essentially zdii-mh-forl changes in the medial compartment nearly there in the patellofemoral compartment. We talked about treatment options today in detail she states previous cortisone injections worked okay but do not last very long she has never had gel shots she would like to try these. Eventually she is probably going to require total knee arthroplasty if she does not get great relief from her conservative measures. At her request under sterile conditions I injected the patient's left knee joint in the office today with Orthovisc injection number 1. I will see her back next week for the 2nd injection left knee. We will see how things go she voiced understanding agrees above plan she will call for any further problems difficulties or questions. Not available 10/14/2023 11:27:10 10/27/2023 10/27/2023 Patient has severe primary osteoarthritis of the left knee joint. She is essentially eghq-lg-itsb in the medial compartment nearly there the patellofemoral compartment we talked about previous treatment options she has elected to proceed with Orthovisc therefore under sterile conditions I injected the patient's left knee joint in the office today with Orthovisc injection number 2. I will see her back next week for the 3rd injection left knee she voiced understanding agrees above plan she will call for any further problems difficulties or questions. Not available 10/27/2023 18:01:25 11/03/2023 11/03/2023 The patient has severe primary osteoarthritis of the left knee as described. Under still conditions, I injected the patient left knee joint in the office with Orthovisc injection number three. I will see her back in six weeks to see what impact treatment has had. She voiced understanding and agrees with the above plan. She will call for any further problems, difficulties, or questions. Not available 11/03/2023 11:53:34 Plan of Treatment Reminders Order Date Submit Date Provider Last Modified By Organization Details Last Modified Time Details Appointments None recorded. Lab None recorded. Referral None recorded. Procedures knee aspiration /injection (PROC) 2023 024 In-Office Order, Internal Use Only DO Not Attach Compendium DO Not Attach Compendium, Do Not Delete/merge, [id number] 11:11:23 knee aspiration /injection (PROC) 2023 024 In-Office Order, Internal Use Only DO Not Attach Compendium DO Not Attach Compendium, Do Not Delete/merge, [id number] 15:07:12 knee aspiration /injection (PROC) 2023 024 In-Office Order, Internal Use Only DO Not Attach Compendium DO Not Attach Compendium, Do Not Delete/merge, [id number] 11:33:33 Surgeries None recorded. Imaging XR, knee 2023 024 [facility] [place], [address], [place], [address], 11:42:32 Medication Orders ORTHOVISC 30 mg/2 mL intra-noelle cular syringe 2023 024 [email or web address] [id number], [address] [place], [address], 11:21:12 ORTHOVISC 30 mg/2 mL intra-noelle cular syringe 2023 024 [email or web address] [id number], [address] [place], [address], 4 18:05:03 ORTHOVISC 30 mg/2 mL intra-noelle cular syringe 2023 024 [email or web address] [id number], [address] [place], [address], 4 12:47:07 Patient TargetsNo targets recorded. Patient InstructionsNo instructions recorded. Reason for Referral None Reported. Results Created Date Observation Date Name Description Value Unit Range Abnormal Flag Note LastModifiedBy Organization Detail LastModifiedTime 02/23/20 22 XR, hand, 3 or more view No observ ation record ed. [id number] [facility] [place] [address], [place], [address], 11/11/2022 01:07:11 10/14/19 24 XR, knee No observ ation record ed. [email or web address] [facility] [place] [address], [address], 10/14/2023 11:29:27 Result Notes None recorded. Problems Name Problem SNOMED Code Status Onset Date Resolution Date Notes Provider Name and Address Organization Details Recorded Time Acquired trigger finger of left middle finger 2401703196405 02 Active 2021 Not Available [employer] 3 01:06:16 Pain of left knee joint 5996480294303 07 Active 2023 Julissa Anaya CNA null, [place] - [employer] 4 10:47:11 Osteoarthr itis of left knee joint 6389460362099 09 Active 2023 DIOR Johnson [address] [facility], [facility] [address], [place], [address] , [place] [employer] 4 11:29:44 Problem Notes None recorded. Procedures Surgical History Date Name Laterality Status Provider Name and Address Organization Details Recorded Time Cataract Surgery completed Julissa Anaya CNA [place] [facility] 10/14/2023 10:46:16 Carpal tunnel completed Not Available [facility] 11/11/2022 01:05:42 excision of bunion completed Not Available [facility] 11/11/2022 01:05:42 release of trigger finger completed Not Available [facility] 11/11/2022 01:05:42 Imaging Results Imaging Date Name Status [facility]Modified by [facility] Details LastModified Time 02/22/2022 XR, hand, 3 or more view completed [id number] [facility] [place] [address], [place], [address], 11/11/2022 01:07:11 10/14/2023 XR, knee completed [email or web address] [facility] [place] [address], [place], [address], 10/14/2023 11:29:27 Procedure Notes None recorded. Medical Equipment None Reported. Medications Name Sig Start Date Stop Date Status Note LastModified by Organization Details LastModified Time amoxicillin 500 mg capsule TAKE 1 CAPSULE BY MOUTH FOUR TIMES A DAY 02/22 completed Not Available Not Available Not Available prednisone 10 mg tablet PLEASE SEE ATTACHED FOR DETAILED DIRECTION S 10/14 completed Not Available Not Available Not Available atorvastati n 20 mg tablet 10/14 completed Not Available Not Available Not Available atorvastati n 10 mg tablet 10 MG ORALLY DAILY active Not Available Not Available No t Available metoprolol succinate ER 50 mg tablet,exte nded release 24 hr TAKE 1 TABLET BY MOUTH EVERY DAY active Not Available Not Available No t Available ciprofloxac in 500 mg tablet TAKE 1 TABLET BY MOUTH EVERY 12 HOURS 10/14 completed Not Available Not Available Not Available tramadol 50 mg tablet TAKE 1 TABLET BY MOUTH EVERY 4 HOURS NEEDED FOR PAIN 10/14 completed Not Available Not Available Not Available prednisone 10 mg tablets in a dose pack Take 1 tab by mouth, 3 times a day for 3 daysTake 1 tab by mouth 2 times a day for 2 daysTake 1 tab by mouth once a day for 1 day 10/14 completed Not Available Not Available Not Available meloxicam 7.5 mg tablet TAKE 1 TABLET BY MOUTH DAILY NEEDED FOR PAIN active Not Available Not Available No t Available Kenalog 10 mg/mL suspension for injection In office injection administe red by the provider 10/14 completed [facility]: 0003- 0494- 20 Not Available Not Available Not Available levothyroxi ne 50 mcg tablet 50 MCG ORALLY DAILY active Not Available Not Available No t Available hyoscyamine 0.[address] by sublingua l route as needed. active Not Available Not Available No t Available gabapentin 300 mg capsule TAKE 1 CAPSULE BY MOUTH ONCE DAILY FOR 2 WEEKS, THEN INCREASE TO 1 CAPSULE TWICE DAILY 10/14 completed Not Available Not Available Not Available aspirin 81 mg chewable tablet Chew 1 tablet every day by oral route. 10/14 completed Not Available Not Available Not Available pravastatin 20 mg tablet TAKE 1 TABLET BY MOUTH DAILY active Not Available Not Available No t Available ergocalcife rol (vitamin D2) 1,250 mcg (50,000 unit) capsule TAKE 1 CAPSULE BY MOUTH ONCE WEEKLY 10/14 completed Not Available Not Available Not Available zolpidem 10 mg tablet TAKE 1 TABLET BY MOUTH EVERY DAY AT BEDTIME active Not Available Not Available No t Available fluticasone propionate 50 mcg/actuati on nasal spray,suspe nsion ADMINISTE R 1 TO 2 SPRAYS IN EACH NOSTRIL TWICE DAILY 10/14 completed Not Available Not Available Not Available amoxicillin 875 mg-potassiu m clavulanate 125 mg tablet TAKE 1 TABLET BY MOUTH TWICE DAILY 10/14 completed Not Available Not Available Not Available Vitamin B6 100 mg tablet Take by oral route. active Not Available Not Available No t Available olmesartan 20 mg-hydrochl orothiazide 12.5 mg tablet TAKE 1 TABLET BY MOUTH EVERY DAY 10/14 completed Not Available Not Available Not Available ORTHOVISC 30 mg/2 mL intra-artic ular syringe Inject 2 mL every week by intra-art icular route. 2023 active Not Available Not Available Not Avai lable Tylenol active Not Available Not Avail able Not Available lidocaine (PF) 5 mg/mL (0.5 %) injection solution Take 10 mg by injection route. 10/14 completed Not Available Not Available Not Available vitamin B12 500 mcg-folic acid 400 mcg tablet Take by oral route. active Not Available Not Available No t Available Vitamin D3 50 mcg (2,000 unit) capsule Take by oral route. active Not Available Not Available No t Available Kapspargo Sprinkle 50 mg capsule,ext ended release TAKE 1 CAPSULE BY MOUTH EVERY DAY 10/14 completed Not Available Not Available Not Available ID NOW COVID-19 Test Kit TEST DIRECTED TODAY 02/22 completed Not Available Not Available Not Available Dayvigo 5 mg tablet TAKE 1 TABLET BY MOUTH AT BEDTIME 10/14 completed Not Available Not Available Not Available magnesium citrate 100 mg capsule Take by oral route. active Not Available Not Available No t Available Vitals Date Recorded Body mass index (BMI) Body height Body weight Provider Name and Address Organization Details Last Updated DateTime 02/22/2022 24 kg/m2 147.32 cm 08140.12 g Not Available [facility] 11/11/2022 01:05:46 Date Recorded Body mass index (BMI) Body height Body weight Provider Name and Address Organization Details Last Updated DateTime 03/22/2022 24 kg/m2 147.32 cm 29360.12 g Not Available [facility] 11/11/2022 01:05:46 Date Recorded Body height Body mass index (BMI) Body weight Provider Name and Address Organization Details Last Updated DateTime 10/14/2023 149.86 cm 23.2 kg/m2 97996.12 g Julissa Anaya CNA [employer] 10/14/2023 10:37:56 Date Recorded Body height Body mass index (BMI) Body weight Provider Name and Address Organization Details Last Updated DateTime 10/27/2023 149.86 cm 23.2 kg/m2 17276.12 g Julissa Anaya CNA [employer] 10/27/2023 15:05:19 Date Recorded Body height Body mass index (BMI) Body weight Provider Name and Address Organization Details Last Updated DateTime 11/03/2023 149.86 cm 23.2 kg/m2 35345.12 g Julissa Anaya CNA [employer] 11/03/2023 11:26:50 Social History Question Answer Notes LastModified by Organizat ion Details LastModified Time Tobacco Smoking Status Former Smoker Julissa Anaya CNA null, [place] [facility] 10/14/2023 10:45:37 What Is Your Level Of Alcohol Consumption? None [id number] Information not available 11/11/2022 When Did You Quit Smoking? 18+yearssin celastcigar ette 41 Years Ago Information not available 10/14/2023 How Many Years Have You Smoked Tobacco? 15 Information not available 10/14/2023 Sex: Unknown Functional Status None recorded. Mental Status None recorded. Family History Relationship Description Onset Age of this Age Resolved Age Notes LastModified by Organization Details LastModified Time Father Diabetes mellitus [id number] Not available 11/11/2022 01:05:42 Father Heart disease Not available 2023 10:45:01 Brother Heart disease Not available 2023 10:45:01 Sister Heart disease Not available 2023 10:45:01 Medical History Condition Response ARTHRITIS Y OSTEOPOROSIS Y HYPERTENSION Y Gynecological HistoryNo gynecological history recorded. Obstetrics History GPAL:G 0 P 0 0 0 0 Past Encounters Encounter ID Performer Location Encounter Start Date Encounter Closed Date Diagnosis/Indication Diagnosis SNOMED-CT Code Diagnosis ICD10 Code Diagnosis Note [id number] [facility] [place] [address] [place] [address] 02/22/2022 00:00:00 02/22/2022 10:18:15 [id number] [facility] [place] [address] [place] [address] 03/22/2022 00:00:00 03/22/2022 10:16:36 [id number] DIOR Johnson [facility] [place] [address] [place] [address] 10/14/2023 10:23:04 10/14/2023 11:18:35 Pain of left knee joint 8521211424 03121 M25.562 Osteoarthr itis of left knee joint 6037780577 99357 M17.12 [id number] DIOR Johnson [facility] [place] [address] [place] [address] 10/27/2023 15:02:01 10/27/2023 17:09:48 Osteoarthritis of left knee joint 4247177962 07087 M17.12 Pain of le ft knee joint 3954882846 88673 M25.151 [id number] DIOR Johnson [facility] [place] [address] [place] [address] 11/03/2023 11:24:37 11/03/2023 12:58:49 Osteoarthritis of left knee joint 2967309623 45843 M17.12 Pain of le ft knee joint 8662430314 44821 M25.562 Health Concerns Section Related Observation LastModified by Organization Detai ls LastModified Time None Recorded Concern Status LastModified by Organization Details LastModified Time None Recorded Advance Directives Directive None Recorded Payers Encounter Date Sequence Insurance Name Policy Number Policy De [place] Covered Member ID De [place] Member ID Guarantor Name 10/14/2023 1 [place] Radha Blake [employer] [id number] Radha [employer] 10/14/2023 2 [facility] (MEDICARE SUPPLEMENT) [id number] Umberto [employer] [id number] Radha Brooks 10/27/2023 1 [place] Radha Blake [employer] [id number] Radha [employer] 10/27/2023 2 [facility] (MEDICARE SUPPLEMENT) [id number] Umberto [place] [id number] Radha [employer] 11/03/2023 1 [place] Radha Blake [employer] [id number] Radha [employer] 11/03/2023 2 [facility] (MEDICARE SUPPLEMENT) [id number] Umberto [employer] [id number] Radha Brooks Notes Date Note Type Note Provider Name and Address Organization Details Recorded Time 4 text/html Patient returns complaining of a new problem today she has left knee pain. Apparently she has had issues with her knees her many years she has had previous cortisone injections elsewhere in her left knee which had given her some relief. She has talked to other friends who have told her about viscosupplementation injection she is wondering about Orthovisc injection for her left knee. She states she has osteoarthritis we did have any x-rays that are recent she states she had some done in July of 2022 which is about a year and a half ago so we will get new x-rays today. She states if she stands for too long she gets aching pain mostly in the medial compartment. She states over time her pain has worsened to the point where she has trouble with walking or standing for long periods has issues with squatting kneeling going up and down stairs. She reports crepitation occasional puffiness and has trouble bending her knee fully because of discomfort. She states the pain is about a 6 on a scale 1-10 most days she does take meloxicam daily which helps slightly however she is not getting the relief she is looking for. She is trying to avoid total knee arthroplasty she would rather not have surgery although this would give her more long-term relief. We talked about this today she would rather try the gel shots which is reasonable we will start with Orthovisc injection 1. Today.Past medical history sheet was reviewed and signed on intake sheet today's date drug allergies current medications family social history previous surgical history 10 point review of systems was reviewed and discussed in detail today with the patient. DIOR Johnson [address], [place], [address], [employer] 10/14/2023 11:30:14 4 text/html patient returns for Orthovisc injection 2. Left knee. The patient has mild varus deformity with uywi-yy-dwmb changes in the medial compartment and subchondral sclerosis particularly in the medial tibial joint surface. There is some irregularity and flattening of the medial femoral condyle also. Patellofemoral articulation shows very small marginal osteophytes off the medial facet which articulates with the medial femoral condyle which is essentially uoev-vz-bgqk here as well. The patient states she is getting some relief from the 1st injection she comes in today for Orthovisc injection 2. DIOR Johnson [address], [place], [address], [employer] 10/27/2023 18:01:38 4 text/html The patient returns for Orthovisc injection number three. She has severe primers Freda Raitis with essentially bone on bone changes in the medial compartment, and nearly there in the patellofemoral compartment of her left knee. She has not gotten much relief from the first two rounds of injections. I have advised her to give it a little more time. DIOR Johnson [address] [facility], [facility] [address], [place], [address], [place] [facility] [employer] [facility] 11/03/2023 11:54:03 OBGyn Episode No OBEpisode recorded.
--- OUTSIDE RECORDS SUMMARY | 2024-10-10 09:50 | XMS_ITS | Clinical Summary ---
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
--- NOTE | 2024-10-10 11:00 | NEURO_ITS ---
Impression: # Complains of nocturnal paresthesia of left hand. Non-diabetic. ? # Moderate to severe left Carpal Tunnel Syndrome. # No ulnar neuropathy. ? # Mildly abnormal needle/EMG exam. Nerve Conduction Studies Anti Sensory Summary Table ?Stim Site NR Peak (ms) P-T Amp (?V) Site1 Site2 Delta-P (ms) Dist (cm) Stewart (m/s) Left Median Anti Sensory (2-3nd Digit) Wrist ? 5.6 13.8 Wrist 2-3nd Digit 5.6 14.0 25 Wrist ? 5.7 15.0 Wrist 2-3nd Digit 5.6 14.0 25 Left Radial Anti Sensory (Base 1st Digit) Wrist ? 2.2 29.3 Wrist Base 1st Digit 2.2 0.0 Left Ulnar Anti Sensory (5th Digit) Wrist ? 2.6 45.3 Wrist 5th Digit 2.6 14.0 54 Motor Summary Table ?Stim Site NR Onset (ms) O-P Amp (mV) Site1 Site2 Delta-0 (ms) Dist (cm) Stewart (m/s) Left Median Motor (Abd Poll Brev) Wrist ? 5.9 2.7 Elbow Wrist 5.4 29.0 54 Elbow ? 11.3 3.0 Left Ulnar Motor (Abd Dig Minimi) Wrist ? 2.2 7.3 A Elbow Wrist 4.9 30.0 61 A Elbow ? 7.1 5.6 F Wave Studies ?NR F-Lat (ms) L-R F-Lat (ms) Left Median (Mrkrs) (Abd Poll Brev) ? 28.54 Left Ulnar (Mrkrs) (Abd Dig Min) ? 27.05 EMG ?Side Muscle Nerve Root Ins Act Fibs Amp Dur Recrt Comment Left 1stDorInt Ulnar C8-T1 Nml Nml Nml Nml Nml Left Ext Indicis Radial (Post Int) C7-8 Nml Nml Nml Nml Nml Left Ext Digitorum Radial (Post Int) C7-8 Nml Nml Nml Nml Nml Left BrachioRad Radial C5-6 Nml Nml Nml Nml Nml Left PronatorTeres Median C6-7 Nml Nml Nml Nml Nml Left Abd Poll Brev Median C8-T1 Nml Nml Decr >12ms +2 Left ABD Dig Min Ulnar C8-T1 Nml Nml Nml Nml Nml MTDD
== END 2024-10-10 09:15 | disposition home or self-care (01) ==
PROVIDERS: PCP Family Medicine; Visit Provider Family Medicine
DX: G56.02 Carpal tunnel syndrome, left upper limb (principal)
CPT/HCPCS: 95886; 95909

== ENCOUNTER 2024-10-24 10:09 | Outpatient (CLI) | payer MEDICARE, OTHER, SELFPAY ==
--- NOTE | ~2024-10-24 | XR_ITS ---
Left Hand Technique: PA, oblique, and lateral views were obtained. Clinical History: Pain COMPARISON: 10/21/2022 Findings: No acute fracture or dislocation is seen. Osseous alignment is anatomic. Stable degenerativ e change at the base of the thumb with apparent loose body at the first CMC joint. Soft tissues are u nremarkable. Impression: No acute abnormality. Stable degenerative changes at the first CMC joint region, as above. Reviewed, dictated and finalized at location M. STORAGE WORKER Impression: No acute abnormality. Stable degenerative changes at the first CMC joint region , as above.
--- OUTSIDE RECORDS SUMMARY | 2024-10-24 11:09 | XMS_ITS | Clinical Summary ---
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
--- OUTSIDE RECORDS SUMMARY | 2024-10-24 11:09 | XMS_ITS | Data Portability ---
Author Organization [place] [facility] [employer] [facility], Main Office Address [address] [place] [address] Care Team Providers Care Sorting Machine Attendant Name Role Phone MARYAM DIALLO Primary Care Provider MARYAM DIALLO Referring Provider Assessment Encounter Date Assessment Date Assessment LastModified by Organization Details LastModified Time 10/14/2023 10/14/2023 The patient has severe primary osteoarthritis left knee joint with essentially tzdl-vn-drua changes in the medial compartment nearly there [...] the left knee joint. She is essentially utwr-ch-qbof in the medial compartment nearly there the [...] DO Not Attach Compendium, Do Not Delete/merge, [id number] 11:11:23 knee aspiration /injection (PROC) 2023 024 In-Office Order, Internal Use Only DO Not Attach Compendium DO Not Attach Compendium, Do Not Delete/merge, [id number] 15:07:12 knee aspiration /injection (PROC) 2023 024 In-Office Order, Internal Use Only DO Not Attach Compendium DO Not Attach Compendium, Do Not Delete/merge, [id number] 11:33:33 Surgeries None recorded. Imaging XR, knee 2023 024 [facility] [place], [address], [place], [address], 11:42:32 Medication Orders ORTHOVISC 30 mg/2 mL intra-noelle cular syringe 2023 024 [email or web address] [id number], [address] [place], [address], 11:21:12 ORTHOVISC 30 mg/2 mL intra-noelle cular syringe 2023 024 [email or web address] [id number], [address] [place], [address], 4 18:05:03 ORTHOVISC 30 mg/2 mL intra-noelle cular syringe 2023 024 [email or web address] [id number], [address] [place], [address], 4 12:47:07 Patient TargetsNo targets recorded. Patient InstructionsNo instructions recorded. Reason for Referral None Reported. Results Created Date Observation Date Name Description Value Unit Range Abnormal Flag Note LastModifiedBy Organization Detail LastModifiedTime 02/23/20 22 XR, hand, 3 or more view No observ ation record ed. [id number] [facility] [place] [address], [place], [address], 11/11/2022 01:07:11 10/14/19 24 XR, knee No observ ation record ed. [email or web address] [facility] [place] [address], [address], 10/14/2023 11:29:27 Result Notes None recorded. Problems Name Problem SNOMED Code Status Onset Date Resolution Date Notes Provider Name and Address Organization Details Recorded Time Acquired trigger finger of left middle finger 3547323377154 02 Active 2021 Not Available [employer] 3 01:06:16 Pain of left knee joint 1181120220402 07 Active 2023 Julissa Anaya CNA null, [place] [employer] 4 10:47:11 Osteoarthr itis of left knee joint 2482998259433 09 Active 2023 DIOR Johnson [address] [facility], [facility] [address], [place], [address] , [place] [employer] 4 11:29:44 Problem Notes None recorded. Procedures Surgical History Date Name Laterality Status Provider Name and Address Organization Details Recorded Time Cataract Surgery completed Julissa Anaya CNA [place] [facility] 10/14/2023 10:46:16 Carpal tunnel completed Not Available [facility] 11/11/2022 01:05:42 excision of bunion completed Not Available [facility] 11/11/2022 01:05:42 release of trigger finger completed Not Available [facility] 11/11/2022 01:05:42 Imaging Results Imaging Date Name Status LastModified by [facility] Details LastModified Time 02/22/2022 XR, hand, 3 or more view completed [id number] [facility] [place] [address], [place], [address], 11/11/2022 01:07:11 10/14/2023 XR, knee completed [email or web address] [facility] [place] [address], [place], [address], 10/14/2023 11:29:27 Procedure Notes None recorded. Medical [...] administe red by the provider 10/[address] [facility]: [phone] [phone] Not Available Not Available [...] Date Recorded Body mass index (BMI) Body mass index (BMI) Body height Body height Body weight Body weight Provider Name and Address Organization Details Last Updated DateTime 11/11/2022 24 kg/m2 24 kg/m2 147.32 cm 147.32 cm 63575.1 2 g 30896.1 2 g Not Available [employer] 01:05:46 Date Recorded Body height Body mass index (BMI) Body weight Provider Name and Address Organization Details Last Updated DateTime 10/14/2023 149.86 cm 23.2 kg/m2 67677.12 g JESSEE Álvarez [employer] 10/14/2023 10:37:56 Date Recorded Body height Body mass index (BMI) Body weight Provider Name and Address Organization Details Last Updated DateTime 10/27/2023 149.86 cm 23.2 kg/m2 68855.12 g Julissa Anaya CNA [employer] 10/27/2023 15:05:19 Date Recorded Body height Body mass index (BMI) Body weight Provider Name and Address Organization Details Last Updated DateTime 11/03/2023 149.86 cm 23.2 kg/m2 80791.12 g JESSEE Álvarez [employer] 11/03/2023 11:26:50 Social History Question Answer Notes LastModified by Organizat ion Details LastModified Time Tobacco Smoking Status Former Smoker JESSEE Álvarez [place] [facility] 10/14/2023 10:45:37 What Is Your Level Of Alcohol Consumption? None [id number] Information not available 11/11/2022 When Did You Quit Smoking? 18+yearssin celastciizaiah ette 41 Years Ago Information not available 10/14/2023 How Many Years Have You Smoked Tobacco? 15 Information not available 10/14/2023 Sex: Unknown Functional Status None recorded. Mental Status None recorded. Family History Relationship Description Onset Age of this Age Resolved Age Notes LastModified by Organization Details LastModified Time Father Diabetes mellitus [id number] Not available 11/11/2022 01:05:42 Father Heart disease [...] SNOMED-CT Code Diagnosis ICD10 Code Diagnosis Note [id number] [facility] [place] [address] [place] [address] 02/22/2022 00:00:00 02/22/2022 10:18:15 [id number] [facility] [place] [address] [place] [address] 03/22/2022 00:00:00 03/22/2022 10:16:36 [id number] DIOR Johnson [facility] [place] [address] [place] [address] 10/14/2023 10:23:04 10/14/2023 11:18:35 Pain of left knee joint 3739042806 86177 M25.562 Osteoarthr itis of left knee joint 9483103962 87090 M17.12 [id number] DIOR Johnson [facility] [place] [address] [place] [address] 10/27/2023 15:02:01 10/27/2023 17:09:48 Osteoarthritis of left knee joint 9306996799 46949 M17.12 Pain of le ft knee joint 9313225646 29371 M25.663 [id number] DIOR Johnson [facility] [place] [address] [place] [address] 11/03/2023 11:24:37 11/03/2023 12:58:49 Osteoarthritis of left knee joint 3658796638 03205 M17.12 Pain of le ft knee joint 0226909787 07081 M25.562 Health Concerns Section Related Observation LastModified by Organization Detai ls LastModified Time None Recorded Concern Status LastModified by Organization Details LastModified Time None Recorded Advance Directives Directive None Recorded Payers Encounter Date Sequence Insurance Name Policy Number Policy De [place] Covered Member ID De La Rosa Member ID Guarantor Name 10/14/2023 1 [place] Radha Blake [place] [id number] Radha [place] 10/14/2023 2 [facility] (MEDICARE SUPPLEMENT) [id number] Umberto [place] [id number] Ardha [place] 10/27/2023 1 [place] Radha Blake [place] [id number] Radha [place] 10/27/2023 2 [facility] (MEDICARE SUPPLEMENT) [id number] Umberto [place] [id number] Radha [place] 11/03/2023 1 [place] Radha Blake [place] [id number] Radha [place] 11/03/2023 2 [facility] (MEDICARE SUPPLEMENT) [id number] Umberto [place] [id number] Radha [place] Notes Date Note Type Note Provider Name [...] today with the patient. DIOR Johnson [address], [place], [address], [employer] 10/14/2023 11:30:14 4 text/html patient returns for Orthovisc injection 2. Left knee. The patient has mild varus deformity with xcxj-us-inpp changes in the medial compartment and subchondral sclerosis particularly in the medial tibial joint surface. There is some irregularity and flattening of the medial femoral condyle also. Patellofemoral articulation shows very small marginal osteophytes off the medial facet which articulates with the medial femoral condyle which is essentially qbrt-fm-ziwj here as well. The patient states she is getting some relief from the 1st injection she comes in today for Orthovisc injection 2. DIOR Johnson [address], [place], [address], [employer] 10/27/2023 18:01:38 4 text/html The patient returns [...] a little more time. DIOR Johnson [address] [facility] [facility] [address], [place], [address], [place] [facility] 11/03/2023 11:54:03 OBGyn Episode No OBEpisode recorded.
== END 2024-10-24 10:10 | disposition home or self-care (01) ==
PROVIDERS: PCP Family Medicine; Visit Provider Orthopaedic Surgery
DX: M18.12 Unilateral primary osteoarthritis of first carpometacarpal joint, left hand (principal); R20.0 Anesthesia of skin; R20.2 Paresthesia of skin
CPT/HCPCS: 73130

== ENCOUNTER 2024-10-30 09:53 | Outpatient (CLI) | payer MEDICARE, OTHER, SELFPAY ==
--- OUTSIDE RECORDS SUMMARY | 2024-10-30 10:07 | XMS_ITS | Data Portability ---
Author Organization [place] - [facility] [place] [employer] [facility], Main Office Address [address] [place] [address] Care Team Providers Care Medication Nurse Name Role Phone MARYAM DIALLO Primary Care Provider MARYAM DIALLO Referring Provider [phone] Assessment Encounter Date Assessment Date Assessment LastModified by Organization Details LastModified Time 10/14/2023 10/14/2023 The patient has severe primary osteoarthritis left knee joint with essentially mcyv-md-vwvv changes in the medial compartment nearly there [...] the left knee joint. She is essentially idey-ih-rzti in the medial compartment nearly there the [...] DO Not Attach Compendium, Do Not Delete/merge, 21353 11:33:33 knee aspiration /injection (PROC) 2023 024 In-Office Order, Internal Use Only DO Not Attach Compendium DO Not Attach Compendium, Do Not Delete/merge, [id number] 4 15:07:12 knee aspiration /injection (PROC) 2023 024 In-Office Order, Internal Use Only DO Not Attach Compendium DO Not Attach Compendium, Do Not Delete/merge, [id number] 11:11:23 Surgeries None recorded. Imaging XR, knee 2023 024 [facility] [place], [address], [place], [address], 4 11:42:32 Medication Orders ORTHOVISC 30 mg/2 mL intra-noelle cular syringe 2023 024 [email or web address] [id number], [address] [place], [address], 12:47:07 ORTHOVISC 30 mg/2 mL intra-noelle cular syringe 2023 024 [email or web address] [id number], [address] [place], [address], 4 18:05:03 ORTHOVISC 30 mg/2 mL intra-noelle cular syringe 2023 024 [email or web address] [id number], [address] [place], [address], 4 11:21:12 Patient TargetsNo targets recorded. Patient InstructionsNo instructions recorded. Reason for Referral None Reported. Results Created Date Observation Date Name Description Value Unit Range Abnormal Flag Note LastModifiedBy Organization Detail LastModifiedTime 02/23/20 22 XR, hand, 3 or more view No observ ation record ed. [id number] [facility] [place] [address], [place], [address], 11/11/2022 01:07:11 10/14/19 24 XR, knee No observ ation record ed. [email or web address] [facility] [place] [address], [address], 10/14/2023 11:29:27 Result Notes None recorded. Problems Name Problem SNOMED Code Status Onset Date Resolution Date Notes Provider Name and Address Organization Details Recorded Time Acquired trigger finger of left middle finger 8972999503986 02 Active 2021 Not Available [facility] 3 01:06:16 Pain of left knee joint 5138512731488 07 Active 2023 Julissa Anaya CNA null, [place] - [employer] [facility] 4 10:47:11 Osteoarthr itis of left knee joint 7119703454510 09 Active 2023 DIOR Johnson [address] [facility], [facility] [address], [place], [address] , [place] [employer] [facility] 4 11:29:44 Problem Notes None recorded. Procedures Surgical History Date Name Laterality Status Provider Name and Address Organization Details Recorded Time Cataract Surgery completed Julissa Anaya CNA [place] [facility] 10/14/2023 10:46:16 Carpal tunnel completed Not Available [facility] 11/11/2022 01:05:42 excision of bunion completed Not Available [facility] 11/11/2022 01:05:42 release of trigger finger completed Not Available [facility] 11/11/2022 01:05:42 Imaging Results Imaging Date Name Status LastModified by Organiz atmission hospital Details LastModified Time 02/22/2022 XR, hand, 3 or more view completed [id number] [facility] [place] [address], [place], [address], 11/11/2022 01:07:11 10/14/2023 XR, knee completed [email or web address] [facility] [place] [address], [place], [address], 10/14/2023 11:29:27 Procedure Notes None recorded. Medical [...] administe red by the provider 10/14 completed [facility]: [id number]- 20 Not Available Not Available [...] kg/m2 24 kg/m2 147.32 cm 147.32 cm 05638.1 2 g 82126.1 2 g Not Available [facility] 01:05:46 Date Recorded Body height Body mass index (BMI) Body weight Provider Name and Address Organization Details Last Updated DateTime 10/14/2023 149.86 cm 23.2 kg/m2 17975.12 g JESSEE Álvarez [employer] [facility] 10/14/2023 10:37:56 Date Recorded Body height Body mass index (BMI) Body weight Provider Name and Address Organization Details Last Updated DateTime 10/27/2023 149.86 cm 23.2 kg/m2 63970.12 g Julissa Anaya CNA [employer] [facility] 10/27/2023 15:05:19 Date Recorded Body height Body mass index (BMI) Body weight Provider Name and Address Organization Details Last Updated DateTime 11/03/2023 149.86 cm 23.2 kg/m2 90820.12 g JESSEE Álvarez [employer] [facility] 11/03/2023 11:26:50 Social History Question Answer Notes LastModified by Organizat ion Details LastModified Time Tobacco Smoking Status Former Smoker JESSEE Álvarez [place] [facility] 10/14/2023 10:45:37 What Is Your Level Of Alcohol Consumption? None [id number] Information not available 11/11/2022 When Did You Quit Smoking? 18+yearssin celastciizaiah ette 43 Years Ago Information not available 10/14/2023 How Many Years Have You Smoked Tobacco? 15 Information not available 10/14/2023 Sex: Unknown Functional Status None recorded. Mental Status None recorded. Family History Relationship Description Onset Age of this Age Resolved Age Notes LastModified by Organization Details LastModified Time Father Diabetes mellitus [id number] Not available 11/11/2022 01:05:42 Father Heart disease [...] SNOMED-CT Code Diagnosis ICD10 Code Diagnosis Note [id number] [facility] [place] [address] [place] [address] 02/22/2022 00:00:00 02/22/2022 10:18:15 [id number] [facility] [place] [address] [place] [address] 03/22/2022 00:00:00 03/22/2022 10:16:36 [id number] DIOR Johnson [facility] [place] [address] [place] [address] 10/14/2023 10:23:04 10/14/2023 11:18:35 Pain of left knee joint 9659561243 90164 M25.562 Osteoarthr itis of left knee joint 3033257980 61605 M17.12 [id number] DIOR Johnson [facility] [place] [address] [place] [address] 10/27/2023 15:02:01 10/27/2023 17:09:48 Osteoarthritis of left knee joint 6716456253 56346 M17.12 Pain of le ft knee joint 1086675455 84154 M25.566 [id number] DIOR Johnson [facility] [place] [address] [place] [address] 11/03/2023 11:24:37 11/03/2023 12:58:49 Osteoarthritis of left knee joint 9811421356 21305 M17.12 Pain of le ft knee joint 3446312691 39869 M25.562 Health Concerns Section Related Observation LastModified by Organization Detai ls LastModified Time None Recorded Concern Status LastModified by Organization Details LastModified Time None Recorded Advance Directives Directive None Recorded Payers Encounter Date Sequence Insurance Name Policy Number Policy De La Rosa Covered Member ID De La Rosa Member ID Guarantor Name 10/14/2023 1 [place] Radha Blake [place] [id number] Radha [place] 10/14/2023 2 [facility] (MEDICARE SUPPLEMENT) [id number] Umberto [place] [id number] Radha [place] 10/27/2023 1 [place] Radha [place] [id number] Radha [place] 10/27/2023 2 [facility] (MEDICARE SUPPLEMENT) [id number] Umberto [place] [id number] Radha [place] 11/03/2023 1 [place] Radha Blake [place] [id number] Radha [place] 11/03/2023 2 [facility] (MEDICARE SUPPLEMENT) [id number] Umberto [place] [id number] Radha [place] Notes Date Note Type Note Provider Name [...] DIOR Johnson [address], [place], [address], [employer] 10/14/2023 11:30:14 4 text/html patient returns for Orthovisc injection 2. Left knee. The patient has mild varus deformity with qsld-my-bzvh changes in the medial compartment and subchondral sclerosis particularly in the medial tibial joint surface. There is some irregularity and flattening of the medial femoral condyle also. Patellofemoral articulation shows very small marginal osteophytes off the medial facet which articulates with the medial femoral condyle which is essentially vkcq-ku-kjka here as well. The patient states she is getting some relief from the 1st injection she comes in today for Orthovisc injection 2. DIOR Johnson [address], [place], [address], [employer] 10/27/2023 18:01:38 4 text/html The patient returns [...] a little more time. DIOR Johnson [address] [facility], [facility] [address], [place], [address], [place] [facility] 11/03/2023 11:54:03 OBGyn Episode No OBEpisode recorded.
[2024-10-30 10:34] LABS: Prothrombin Time 13.3 Seconds (11.1-14.7)
== END 2024-10-30 09:54 | disposition home or self-care (01) ==
PROVIDERS: Anesthesiology; PCP Family Medicine; Visit Provider Orthopaedic Surgery
DX: N28.9 Disorder of kidney and ureter, unspecified (principal)
CPT/HCPCS: 36415; 85610; 85730

== ENCOUNTER 2024-11-01 00:07 | Day surgery (SDC) | payer MEDICARE, OTHER, SELFPAY ==
--- NOTE | 2024-10-29 12:21 | PM.IMHP ---
H&P: HPI History of Present Illness Date/Time: 10/29/24 12:21 Chief Complaint: Left carpal tunnel syndrome Narrative: 79-year-old female presents today for left carpal tunnel release. She has been having symptoms of numbness in the left hand for several months. It is predominantly in the thumb index and long finger. She had an EMG done on 10/10/2024 which demonstrated moderate to severe left carpal tunnel syndrome. Patient has tried using a night splint and occasionally has worn the splint during the day to try to help with her numbness. Symptoms have not improved to her satisfaction. Patient would like to proceed with left carpal tunnel release at this point. Review of Systems Review of Systems: All systems reviewed & are unremarkable except as noted in HPI and below PMFSH Past Medical History Medical History Arthritis of carpometacarpal (CMC) joint of right thumb Osteoarthritis of left knee Sciatica Aneurysm of right renal artery 4.26. ct renal artery for renal artery aneurysm- 9mm calcified rim right renal artery aneurysm stable 2019: Chronic insomnia Diverticulosis large intestine w/o perforation or abscess w/o bleeding Essential hypertension GERD without esophagitis Mixed hyperlipidemia Hypothyroid Surgical History Surgical History History of cataract extraction History of bunionectomy History of carpal tunnel release right History of tonsillectomy Trigger finger, left middle finger Left third trigger finger release October 25, 2022 Dr. Ghosh Family History Family History Father Diabetes mellitus Family history of cardiovascular disease Heart attack Mother Brain aneurysm Sibling Heart attack Other Family history of elevated blood lipids Hypertension Social History Social History Smoking packs per day: 1 Smoking cigarettes per day: 20.0 Years smoked: 15 Smoking pack-years: 15.00 Smoking status: Former smoker Tobacco type: cigarettes Second hand tobacco smoke exposure: No Smoking end date: 09/12/80 Alcohol intake: never Substance use: never Substance use type: does not use Do You Feel Safe in your Home?: Yes Lack of Transportation: No Lack of Food: Never True Current Housing: I Have Housing Concerned About Future Housing: No Difficulty Paying Gas/Electric Bills: No Difficulty Paying for Meds: No Currently Unemployed: No Education: High School Diploma/GED Difficulty w/ Childcare or Family Care: No Living arrangements: with family Occupation/Education: retired Gender identity (if verbalized by the patient): Female Spiritual care concerns: No Meds Home Medications and Allergies Home Medications ?Medication ?Instructions ?Recorded ?Confirmed ?Type acetaminophen 500 mg tablet 500 mg PO Q6H PRN Pain 07/15/22 10/24/24 History (Tylenol Extra Strength) cholecalciferol (vitamin D3) 50 50 mcg PO DAILY 10/22/22 10/24/24 History mcg (2,000 unit) capsule cyanocobalamin (vitamin B-12) 500 500 mcg PO DAILY 10/22/22 10/24/24 History mcg tablet magnesium citrate 100 mg capsule 100 mg PO DAILY 10/22/22 10/24/24 History hyoscyamine sulfate 0.125 mg tablet 0.125 mg PO QID PRN dyspepsia #30 02/14/24 10/24/24 Rx tabs pravastatin 20 mg tablet 20 mg PO DAILY #90 tabs 03/06/24 10/24/24 Rx meloxicam 7.5 mg tablet 7.5 mg PO DAILY PRN Pain #90 tabs 04/02/24 10/24/24 Rx metoprolol succinate 50 mg 50 mg PO DAILY #90 tabs 06/29/24 10/24/24 Rx tablet,extended release 24 hr levothyroxine 50 mcg tablet 50 mcg PO DAILY #90 tabs 08/13/24 10/24/24 Rx zolpidem 10 mg tablet 10 mg PO QHS #90 tabs 10/26/24 Rx Allergies Allergy/AdvReac Type Severity Reaction Status Date / Time beef derived (bovine) Allergy Unknown stomach Verified 10/24/24 11:14 pain diclofenac Allergy Unknown abdominal Verified 10/24/24 11:14 pain paxlovid AdvReac Mild bad taste Uncoded 10/24/24 11:14 Exam Narrative: 79-year-old female very alert pleasant. Two point discrimination is greater than 8 mm on the radial side of the thumb and 5 mm in the rest the fingers as well as the radial side of the thumb. Full range of motion of the wrist and fingers. 2+ radial pulse palpable. Positive carpal tunnel compression test, positive Tinel's over the median nerve. Negative Tinel's over the cubital tunnel. Resp: Auscultation: clear to auscultation bilaterally Cardio: Rate: regular rate Rhythm: regular rhythm Assessment and Plan Assessment and plan (1) Carpal tunnel syndrome of left wrist: Code(s): G56.02 - Carpal tunnel syndrome, left upper limb Status: Acute Plan 79-year-old female who has moderate to severe left carpal tunnel syndrome on EMG findings. She is having symptoms on a daily basis in her left hand. She would like to proceed at this point with left carpal tunnel release. She has had her right carpal tunnel release done approximately 20 years ago. Surgical procedures well as risks and complications were discussed in detail all questions were answered and we will proceed. Patient will avoid any aspirin ibuprofen products 1 week prior to surgery. She will see her primary care doctor for pre-surgical clearance
[2024-10-29 15:08] VITALS: BMI 24.0
--- NOTE | 2024-10-29 15:30 | PC.NURSE ---
Addendum entered by Soheila Haro RN 10/29/24 15:39: PT STATES THAT SHE TOOK MELOXICAM ON 10/26/24. INSTRUCTED TO TAKE NO MORE MELOXICAM UNTIL AFTER SURGERY. SHE RELAYS UNDERSTANDING. BILL AT DR ALMEIDA'S OFFICE NOTIFIED. Original Note: Report to the Outpatient Waiting Room, entrance under the green pavilion located off [facility], at time ___11:00AM____ on date ___11/01/23____. Planned Procedure Time: __1:00PM .? Time changes happen often and if your time is changed the preop area will call you the afternoon before. - You and your visitor will be asked to self-screen and do not enter if you have any COVID symptoms. Please call surgeon if you need to reschedule. - A mask is optional within the hospital at this time. Patients may have clear liquids (water, carbonated beverages, clear teas, apple juice) until 3 hours prior to surgery (10:00AM) with a maximum of 20 ounces. - No food from midnight until time of surgery and no smoking, or chewing tobacco (or any form of nicotine). No chewing gum, candy or mints. Take only the following medications with a SIP of water on the morning of surgery: ____LEVOTHYROXINE DO NOT STOP ANY OF YOUR OTHER PRESCRIPTION MEDICATIONS PRIOR TO SURGERY EXCEPT THE FOLLOWING Hold all vitamins and supplements for 3 days per anesthesiologist.- LAST DOSE 10/28/24 Medications to discontinue per physician _HOLD MELOXICAM 7 DAYS PRE-OP PER DR ALMEIDA Date to take last dose___03/23/24 Please no make-up, nail lithuanian, hairspray, perfume, deodorant, or body powder the day of surgery.? No jewelry (including any body piercings) or valuables the day of surgery, leave them at home.? Please take a shower or bath the night before, or the morning of, surgery with an antibacterial soap.? Wear comfortable, loose fitting clothing.? - Jewelry must be removed prior to entering the operating room.? Rings and piercings that are not removed may be cut off. - The hospital will not accept responsibility for valuables.? - Please leave all valuables, including medications, at home the day of surgery. If you are going home after surgery, a licensed crew car driver must drive you home.? - NO public transportation without another adult if you receive anesthesia. - We recommend that an adult stay with you for 24 hours following discharge. - We also recommend that you do not drive, make important decision, drink alcoholic beverages, or take any drugs that were not prescribed by your health care provider for at least 24 hours after your discharge time. Follow any additional instructions given to you from your surgeon. Telephone instructions given to ____PATIENT and asked if any additional questions and then verbalized understanding. Patient advised to call surgeon office or pre surgery nurse liaison [phone] if any additional questions.
--- OUTSIDE RECORDS SUMMARY | 2024-11-01 00:10 | XMS_ITS | Data Portability ---
Author Organization [place] - [facility] [facility], Main Office Address [address] [place] [address] Care Team Providers Care Chicken Picker Name Role Phone MARYAM DIALLO Primary Care Provider MARYAM DIALLO Referring Provider [phone] Assessment Encounter Date Assessment Date Assessment LastModified by Organization Details LastModified Time 10/14/2023 10/14/2023 The patient has severe primary osteoarthritis left knee joint with essentially tjor-ta-hsuy changes in the medial compartment nearly there [...] the left knee joint. She is essentially bcsl-yc-irus in the medial compartment nearly there the [...] DO Not Attach Compendium, Do Not Delete/merge, 21006 11:33:33 knee aspiration /injection (PROC) 2023 024 In-Office Order, Internal Use Only DO Not Attach Compendium DO Not Attach Compendium, Do Not Delete/merge, [id number] 4 15:07:12 knee aspiration /injection (PROC) 2023 024 In-Office Order, Internal Use Only DO Not Attach Compendium DO Not Attach Compendium, Do Not Delete/merge, [id number] 11:11:23 Surgeries None recorded. Imaging XR, knee 2023 024 [facility] [place], [address] [address], [place], [address], 4 11:42:32 Medication Orders ORTHOVISC 30 mg/2 mL intra-noelle cular syringe 2023 024 [email or web address] [id number], [address] [place], [address], 12:47:07 ORTHOVISC 30 mg/2 mL intra-noelle cular syringe 2023 024 [email or web address] [id number], [address] [place], [address], 4 18:05:03 ORTHOVISC 30 mg/2 mL intra-noelle cular syringe 2023 024 [email or web address] [id number], [address] [place], [address], 4 11:21:12 Patient TargetsNo targets recorded. Patient InstructionsNo instructions recorded. Reason for Referral None Reported. Results Created Date Observation Date Name Description Value Unit Range Abnormal Flag Note LastModifiedBy Organization Detail LastModifiedTime 02/23/20 22 XR, hand, 3 or more view No observ ation record ed. [id number] [facility] [place] [address] [facility] [address], [place], [address], 11/11/2022 01:07:11 10/14/19 24 XR, knee No observ ation record ed. [email or web address] [facility] [place] [address] [facility] [address], [address], 10/14/2023 11:29:27 Result Notes None recorded. Problems Name Problem SNOMED Code Status Onset Date Resolution Date Notes Provider Name and Address Organization Details Recorded Time Acquired trigger finger of left middle finger 7947778897902 02 Active 2021 Not Available [facility] 3 01:06:16 Pain of left knee joint 0227361975210 07 Active 2023 Julissa Anaya CNA null, [place] [employer] 4 10:47:11 Osteoarthr itis of left knee joint 6488050375597 09 Active 2023 DIOR Johnson [address] [facility], [facility] [address], [place], [address] , [place] [employer] 4 11:29:44 Problem Notes None recorded. Procedures Surgical History Date Name Laterality Status Provider Name and Address Organization Details Recorded Time Cataract Surgery completed Julissa Anaya CNA [place] [facility] 10/14/2023 10:46:16 Carpal tunnel completed Not Available [facility] 11/11/2022 01:05:42 excision of bunion completed Not Available [facility] 11/11/2022 01:05:42 release of trigger finger completed Not Available [facility] 11/11/2022 01:05:42 Imaging Results Imaging Date Name Status LastModified by [facility] Details LastModified Time 02/22/2022 XR, hand, 3 or more view completed [id number] [facility] [place] [address], [place], [address], 11/11/2022 01:07:11 10/14/2023 XR, knee completed [email or web address] [facility] [place] [address], [place], [address], 10/14/2023 11:29:27 Procedure Notes None recorded. Medical [...] administe red by the provider 10/14 completed [facility]: 0003- 0494- 20 Not Available Not Available [...] kg/m2 24 kg/m2 147.32 cm 147.32 cm 85830.1 2 g 00802.1 2 g Not Available [facility] 01:05:46 Date Recorded Body height Body mass index (BMI) Body weight Provider Name and Address Organization Details Last Updated DateTime 10/14/2023 149.86 cm 23.2 kg/m2 74112.12 g JESSEE Álvarez [employer] [facility] 10/14/2023 10:37:56 Date Recorded Body height Body mass index (BMI) Body weight Provider Name and Address Organization Details Last Updated DateTime 10/27/2023 149.86 cm 23.2 kg/m2 75944.12 g Julissa Anaya CNA [employer] 10/27/2023 15:05:19 Date Recorded Body height Body mass index (BMI) Body weight Provider Name and Address Organization Details Last Updated DateTime 11/03/2023 149.86 cm 23.2 kg/m2 13877.12 g JESSEE Álvarez [employer] [facility] 11/03/2023 11:26:50 Social History Question Answer Notes LastModified by Organizat ion Details LastModified Time Tobacco Smoking Status Former Smoker JESSEE Álvarez [place] [facility] 10/14/2023 10:45:37 What Is Your Level Of Alcohol Consumption? None [id number] Information not available 11/11/2022 When Did You Quit Smoking? 18+yearssin celastciizaiah ette 41 Years Ago Information not available 10/14/2023 How Many Years Have You Smoked Tobacco? 15 Information not available 10/14/2023 Sex: Unknown Functional Status None recorded. Mental Status None recorded. Family History Relationship Description Onset Age of this Age Resolved Age Notes LastModified by Organization Details LastModified Time Father Diabetes mellitus [id number] Not available 11/11/2022 01:05:42 Father Heart disease [...] SNOMED-CT Code Diagnosis ICD10 Code Diagnosis Note [id number] [facility] [place] [address] [place] [address] 02/22/2022 00:00:00 02/22/2022 10:18:15 [id number] [facility] [place] [address] [place] [address] 03/22/2022 00:00:00 03/22/2022 10:16:36 [id number] DIOR Johnson [facility] [place] [address] [place] [address] 10/14/2023 10:23:04 10/14/2023 11:18:35 Pain of left knee joint 3347745507 10293 M25.562 Osteoarthr itis of left knee joint 1793427131 00584 M17.12 [id number] DIOR Johnson [facility] [place] [address] [place] [address] 10/27/2023 15:02:01 10/27/2023 17:09:48 Osteoarthritis of left knee joint 5044343460 51113 M17.12 Pain of le ft knee joint 2424383701 77152 M25.440 [id number] DIOR Johnson [facility] [place] [address] [place] [address] 11/03/2023 11:24:37 11/03/2023 12:58:49 Osteoarthritis of left knee joint 9651771710 36195 M17.12 Pain of le ft knee joint 2870706041 25962 M25.562 Health Concerns Section Related Observation LastModified by Organization Detai ls LastModified Time None Recorded Concern Status LastModified by Organization Details LastModified Time None Recorded Advance Directives Directive None Recorded Payers Encounter Date Sequence Insurance Name Policy Number Policy De La Rosa Covered Member ID De La Rosa Member ID Guarantor Name 10/14/2023 1 [place] Radha Blake [place] [id number] Radha [place] 10/14/2023 2 [facility] (MEDICARE SUPPLEMENT) [id number] Umberto [place] [id number] Radha [place] 10/27/2023 1 [place] Radha Blake [place] [id number] Radha [place] 10/27/2023 2 [facility] (MEDICARE SUPPLEMENT) [id number] Umberto [place] [id number] Radha [place] 11/03/2023 1 [place] Radha Blake [place] [id number] Radha [place] 11/03/2023 2 [facility] (MEDICARE SUPPLEMENT) [id number] Umberto [place] [id number] Radha [place] Notes Date Note Type Note Provider Name [...] DIOR Johnson [address], [place], [address], 5 CUPS and some sugar 10/14/2023 11:30:14 4 text/html patient returns for Orthovisc injection 2. Left knee. The patient has mild varus deformity with zwqi-ze-ftlo changes in the medial compartment and subchondral sclerosis particularly in the medial tibial joint surface. There is some irregularity and flattening of the medial femoral condyle also. Patellofemoral articulation shows very small marginal osteophytes off the medial facet which articulates with the medial femoral condyle which is essentially usnv-kx-tpqm here as well. The patient states she is getting some relief from the 1st injection she comes in today for Orthovisc injection 2. DIOR Johnson [address], [place], [address], 5 CUPS and some sugar 10/27/2023 18:01:38 4 text/html The patient returns [...] a little more time. DIOR Johnson [address] [facility], [facility] [address], [place], [address], [place] [facility] 11/03/2023 11:54:03 OBGyn Episode No OBEpisode recorded.
[2024-11-01 11:00] VITALS: BP 163/66; PULSE 64; RESP 16; TEMP 36.4; O2SAT 98
[2024-11-01] MEDS: LACTATED RINGERS 1,000 ML 30 ML IV CONT (11:30)
[2024-11-01] MEDS: KETOROLAC 15 MG/ML VIAL (*BKC) IV PUSH (11:47)
[2024-11-01] MEDS: ACETAMINOPHEN 500 MG TABLET 1000 MG PO (11:47)
[2024-11-01 11:52] VITALS: BMI 24.7
--- NOTE | 2024-11-01 12:18 | WPDHPUPDATE1 ---
History and Physical Update Update Date/Time: 11/01/24 12:18 History and Physical has been reviewed, including an updated exam of the patient. There are NO changes in the patient's condition. Risks, benefits, and alternatives have been discussed and questions answered. Patient agrees to proceed with procedure.
--- NOTE | 2024-11-01 12:35 | P.PNAN_ITS ---
Anes - Initial Pre Proc Eval Procedure: Operation Date: 11/01/24 13:00 Proposed Procedures p Left Carpal Tunnel Release - Richard Guerrero MD Date/Time: 11/01/24 12:35 Surgeon: Richard Guerrero MD Pre Op Diagnosis: Left Carpal Tunnel syndrome Patient Data Age: 79 Gender: F Height: 1.5 m Weight: 55.7 kg Last Vital Signs Temp 97.6 F 11/01/24 11:00 Pulse 64 11/01/24 11:00 Resp 16 11/01/24 11:00 BP 163/66 H 11/01/24 11:00 Pulse Ox 98 11/01/24 11:00 O2 Del Method Room Air 11/01/24 11:00 Allergies Allergy/AdvReac Type Severity Reaction Status Date / Time diclofenac Allergy Unknown abdominal Verified 11/01/24 12:02 pain nirmatrelvir (From Paxlovid) AdvReac Unknown BAD TASTE Verified 11/01/24 12:02 ritonavir (From Paxlovid) AdvReac Unknown BAD TASTE Verified 11/01/24 12:02 Home Medications ?Medication ?Instructions ?Recorded ?Confirmed ?Type acetaminophen 500 mg tablet 1,000 mg PO Q6H PRN Pain 07/15/22 11/01/24 History (Tylenol Extra Strength) cholecalciferol (vitamin D3) 50 50 mcg PO DAILY 10/22/22 11/01/24 History mcg (2,000 unit) capsule cyanocobalamin (vitamin B-12) 500 500 mcg PO DAILY 10/22/22 11/01/24 History mcg tablet magnesium citrate 100 mg capsule 100 mg PO DAILY 10/22/22 11/01/24 History hyoscyamine sulfate 0.125 mg tablet 0.125 mg PO QID PRN dyspepsia #30 02/14/24 10/29/24 Rx tabs pravastatin 20 mg tablet 20 mg PO DAILY #90 tabs 03/06/24 11/01/24 Rx meloxicam 7.5 mg tablet 7.5 mg PO DAILY PRN Pain #90 tabs 04/02/24 11/01/24 Rx metoprolol succinate 50 mg 50 mg PO DAILY #90 tabs 06/29/24 11/01/24 Rx tablet,extended release 24 hr levothyroxine 50 mcg tablet 50 mcg PO DAILY #90 tabs 08/13/24 11/01/24 Rx zolpidem 10 mg tablet 10 mg PO QHS #90 tabs 10/26/24 11/01/24 Rx Patient hx anesthesia problems: none Family hx anesthesia problems: none Results Review: All pre-operative results and documents have been reviewed as part of the pre- operative evaluation. 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 Ghosh Family History Family History Father Diabetes mellitus Family history of cardiovascular disease Heart attack Mother Brain aneurysm Sibling Heart attack Other Family history of elevated blood lipids Hypertension Social History Social History Smoking packs per day: 1 Smoking cigarettes per day: 20.0 Years smoked: 15 Smoking pack-years: 15.00 Smoking status: Former smoker Tobacco type: cigarettes Second hand tobacco smoke exposure: No Smoking end date: 03/12/82 Alcohol intake: never Substance use: never Substance use type: does not use Do You Feel Safe in your Home?: Yes Lack of Transportation: No Lack of Food: Never True Current Housing: I Have Housing Concerned About Future Housing: No Difficulty Paying Gas/Electric Bills: No Difficulty Paying for Meds: No Currently Unemployed: No Education: High School Diploma/GED Difficulty w/ Childcare or Family Care: No Living arrangements: with family [facility] Occupation/Education: retired Gender identity (if verbalized by the patient): Female Spiritual care concerns: No Anes - Eval Final PreProcedure Day of Procedure 11/01/24 12:35 Patient weight: normal Heart: regular rate and rhythm Lungs: clear to auscultation Airway: Mallampati scale class II Neurological: alert and oriented Last oral intake: >/= 8 hours ASA classification: III Emergent: no Anesthetic plan: proceed Anesthesia type and monitoring: general LMA and standard monitoring Results Review: All pre-operative results and documents have been reviewed as part of the pre- operative evaluation. Informed Consent: The patient's anesthetic plan and its attendant risks and benefits were discussed with the patient/family/POA. Questions were solicited and answers provided to the satisfaction of the patient/family/POA.
[2024-11-01] MEDS: ceFAZolin 2 GM/D5W 50 ML 2 GM/50 ML BAG IVPB (12:54)
[2024-11-01] MEDS: LIDOCAINE 1% LOCAL INJ 10 ML VIAL 2 ML INFILTRATE (13:14)
[2024-11-01 13:37] VITALS: BP 106/66; PULSE 71; RESP 16; O2SAT 100
--- NOTE | 2024-11-01 13:38 | P.OP_ITS ---
Procedure Note - Detailed Date of Procedure 11/01/24 Pre-op Diagnosis Left Carpal Tunnel syndrome Post-op Diagnosis Same Procedure Performed Left carpal tunnel release Surgeon Richard Guerrero MD Principal Software Engineer [facility] Description of Procedure Patient was brought to the operating room and sedation was administered. The left upper extremity was prepped draped usual fashion. She received 2 g of Ancef preoperatively. Local anesthesia with 1% lidocaine was injected. Limb was exsanguinated tourniquet elevated to 200 mmHg. A 2 cm longitudinal incision was made at the base of the palm in line with the radial border of the 4th ray. Dissection was carried down through the superficial palmar fascia and the transverse carpal ligament was exposed and incised longitudinally along its ulnar border. Complete release was achieved distally. Proximally subcutaneous fat was elevated off the distal volar forearm fascia and a [place] elevator passed beneath the fascia separate it from the underlying nerve the fascia was split for a distance of 3 cm proximal to the flexor crease of the wrist completing the decompressio. The nerve appeared unremarkable. Tourniquet was released. Hemostasis was achieved. The wound irrigated closed with 5 0 nylon suture and a bulky dressing applied patient transferred to postop recovery room in stable condition. [facility] Billing Surgery - Charge Forward: Surgery Billing (Left carpal tunnel release)
[2024-11-01 14:05] VITALS: BP 111/61; PULSE 66; RESP 16
[2024-11-01 14:35] VITALS: BP 135/67; PULSE 59; RESP 16
== END 2024-11-01 15:00 | disposition home or self-care (01) ==
PROVIDERS: PCP Family Medicine; Visit Provider Orthopaedic Surgery
PROC: (CPT 64721; principal; 2024-11-01 13:00)
DX: G56.02 Carpal tunnel syndrome, left upper limb (principal); I10 Essential (primary) hypertension; K21.9 Gastro-esophageal reflux disease without esophagitis; E78.2 Mixed hyperlipidemia; E03.9 Hypothyroidism, unspecified; M18.11 Unilateral primary osteoarthritis of first carpometacarpal joint, right hand; M17.12 Unilateral primary osteoarthritis, left knee; G47.00 Insomnia, unspecified; Z98.890 Other specified postprocedural states; Z87.891 Personal history of nicotine dependence; Z87.19 Personal history of other diseases of the digestive system; Z86.79 Personal history of other diseases of the circulatory system; Z82.49 Family history of ischemic heart disease and other diseases of the circulatory system
CPT/HCPCS: 64721; A9270; J0690; J1100; J1885; J2003; J2405; J2704; J3010; J7120